=== PATIENT | male | born 1955 | race Caucasian/White ===

== ENCOUNTER 2020-05-18 21:07 | Inpatient (IN) | payer OTHER ==
[~2020-05-18] VITALS: Ht 152.4 cm; Wt 84.8 kg
[2020-05-18] MEDS ORDERED: CEFTRIAXONE 1GM BAG (ER ONLY) 50 ML IV ONE ×2 (22:30→23:07)
[2020-05-18 22:53] LABS: BASOPHILS % (AUTO) 0.3 % (0.0-2.0); BILIRUBIN,URINE LARGE (NEGATIVE); COLOR,URINE AMBER (YELLOW); EOSINOPHILS % (AUTO) 1.6 % (0.0-6.0); HEMATOCRIT 30 % (39-51); HEMOGLOBIN 9.5 g/dL (13.5-17.5); LEUKOCYTE ESTERASE ,URINE LARGE (NEGATIVE); LYMPHOCYTES # (AUTO) 0.9 /CMM (0.8-4.8); LYMPHOCYTES % (AUTO) 9.8 % (20.0-44.0); MEAN CORPUSCULAR HGB CONC 31 g/dl (31.0-36.0); MEAN CORPUSCULAR VOLUME 73 fL (80-96); MONOCYTES # (AUTO) 0.6 /CMM (0.1-1.30); MONOCYTES % (AUTO) 6.9 % (2.0-12.0); NEUTROPHILS # (AUTO) 7.6 /CMM (1.8-8.9); NEUTROPHILS % (AUTO) 81.4 % (43.0-81.0); NITRITE, URINE POSITIVE (NEGATIVE); PLATELET COUNT (AUTO) 537 /CMM (150-450); PROTEIN,URINE >=300 mg/dl (NEGATIVE); RED BLOOD CELL COUNT(AUTO) 4.15 MIL/uL (4.5-6.0); UGLUCOSE NEGATIVE (NEGATIVE); WHITE BLOOD COUNT (AUTO) 9.4 K/uL (4.3-11.0)
[2020-05-18] MEDS ORDERED: VANCOMYCIN 1 GM in IV D5W 250 ML IV ONE (23:00)
[2020-05-18] MEDS ORDERED: VANCOMYCIN 1 GM VIAL ONE (23:07)
[2020-05-18 23:30] LABS: RBC,URINE TOO NUMEROUS TO COUN /HPF (0-2); WBC,URINE 21-50 /HPF (0-3)
[2020-05-18 23:31] LABS: BACTERIA,URINE Many /HPF (None Seen); SQUAMOUS EPITHELIAL CELL,UR Few /HPF (None Seen); YEAST,URINE Many /HPF (None Seen)
[2020-05-18 23:58] LABS: B-TYPE NATRIURETIC PEPTIDE 878 PG/ML (0-125)
[2020-05-19] VITALS (17 sets, daily range): BP systolic 73–138; BP diastolic 37–115
[2020-05-19 00:21] LABS: BILIRUBIN,DIRECT 0.1 mg/dL (0.0-0.2); BILIRUBIN,TOTAL 0.2 mg/dL (0.2-1.0); CALCIUM, SERUM 8.7 mg/dL (8.5-10.1); CREATININE 0.5 mg/dL (0.6-1.3); POTASSIUM 3.2 mmol/L (3.5-5.1)
[2020-05-19 00:22] LABS: ALBUMIN 1.7 g/dL (3.4-5.0); TOTAL PROTEIN, SERUM 6.3 g/dL (6.4-8.2)
[2020-05-19] MEDS ORDERED: diphenhydrAMINE HCL 50 MG/ML VIAL ONE (01:05)
[2020-05-19] MEDS ORDERED: diphenhydrAMINE HCL 50 MG/ML VIAL IV ONE (02:00)
[2020-05-19 02:44] LABS: LYMPHOCYTES % (MANUAL) 9 % (16-48); MONOCYTES % (MANUAL) 6 % (0-11.0); NEUTROPHILS % (MANUAL) 85 (42-76)
[2020-05-19] MEDS ORDERED: IV NS 0.9% 1,000 ML BAG IV ONE (03:00)
[2020-05-19] MEDS ORDERED: MORPHINE SULFATE INJ 2 MG/ML DISP.SYRIN IV PRN (05:30)
[2020-05-19] MEDS ORDERED: ZOLPIDEM TARTRATE 5 MG TABLET PO PRN (05:30)
[2020-05-19] MEDS ORDERED: Z GUARD REMEDY 2 OZ OINT TP PRN (05:30)
[2020-05-19] MEDS ORDERED: ONDANSETRON HCL/PF 4 MG/2 ML VIAL IVP PRN (05:30)
[2020-05-19] MEDS ORDERED: ACETAMINOPHEN 325 MG TABLET PO PRN (05:30)
[2020-05-19 07:01] LABS: BASOPHILS # (AUTO) 0.1 /CMM (0.0-0.2); BASOPHILS % (AUTO) 0.7 % (0.0-2.0); EOSINOPHILS % (AUTO) 0.6 % (0.0-6.0); HEMATOCRIT 33 % (39-51); LYMPHOCYTES # (AUTO) 1.1 /CMM (0.8-4.8); MEAN CORPUSCULAR HGB CONC 30 g/dl (31.0-36.0); MEAN CORPUSCULAR VOLUME 74 fL (80-96); MONOCYTES # (AUTO) 1.2 /CMM (0.1-1.30); MONOCYTES % (AUTO) 8.8 % (2.0-12.0); NEUTROPHILS # (AUTO) 11.1 /CMM (1.8-8.9); NEUTROPHILS % (AUTO) 81.9 % (43.0-81.0); PLATELET COUNT (AUTO) 613 /CMM (150-450); RED BLOOD CELL COUNT(AUTO) 4.47 MIL/uL (4.5-6.0); WHITE BLOOD COUNT (AUTO) 13.5 K/uL (4.3-11.0)
[2020-05-19 07:19] LABS: ALBUMIN 1.7 g/dL (3.4-5.0); BILIRUBIN,TOTAL 0.3 mg/dL (0.2-1.0); CALCIUM, SERUM 8.4 mg/dL (8.5-10.1); CREATININE 0.5 mg/dL (0.6-1.3); MAGNESIUM 1.8 mg/dL (1.8-2.4); POTASSIUM 4.3 mmol/L (3.5-5.1); TOTAL PROTEIN, SERUM 6.2 g/dL (6.4-8.2)
[2020-05-19 08:10] LABS: THYROID STIMULATING HORMONE 2.435 uIU/mL (0.358-3.74)
[2020-05-19] MEDS ORDERED: APIX5TAB PO (08:37)
[2020-05-19] MEDS ORDERED: LEVO25TA9 PO (08:37)
[2020-05-19] MEDS ORDERED: FLEC100T2 PO (08:37)
[2020-05-19] MEDS ORDERED: OMEP40CA13 PO (08:37)
[2020-05-19] MEDS ORDERED: METO50TA16 PO (08:37)
[2020-05-19 10:25] LABS: BAND % (MANUAL) 1 % (0.0-5.0); LYMPHOCYTES % (MANUAL) 3 % (16-48); MONOCYTES % (MANUAL) 6 % (0-11.0); NEUTROPHILS % (MANUAL) 90 (42-76)
[2020-05-19] MEDS: PANTOPRAZOLE 40 MG TABLET.DR PO SCH (11:44)
[2020-05-19] MEDS: DOCUSATE SODIUM 100 MG CAPSULE PO SCH ×2 (11:44→17:28)
[2020-05-19] MEDS: FLUCONAZOLE IN NS,PREMIX 100 MG in PREMIX 1 EA IV SCH (11:46)
[2020-05-19] MEDS: FLECAINIDE ACETATE (100 MG) 100 MG TABLET PO SCH (17:28)
[2020-05-19] MEDS: METOPROLOL TARTRATE 50 MG TABLET PO SCH (17:28)
[2020-05-19] MEDS: APIXABAN 5 MG TABLET PO SCH (17:44)
[2020-05-19] MEDS: IV NS 0.9% 1,000 ML IV PRN (20:00)
[2020-05-19] MEDS: CEFTRIAXONE 1 G in IV D5W 50 ML IV SCH (22:26)
[2020-05-20] VITALS: BP 149/78
[2020-05-20 04:00] VITALS: BP 139/96
[2020-05-20 06:58] LABS: BASOPHILS % (AUTO) 0.5 % (0.0-2.0); EOSINOPHILS % (AUTO) 3.7 % (0.0-6.0); HEMATOCRIT 23 % (39-51); HEMOGLOBIN 7.4 g/dL (13.5-17.5); LYMPHOCYTES % (AUTO) 21.6 % (20.0-44.0); MEAN CORPUSCULAR HGB CONC 32 g/dl (31.0-36.0); MEAN CORPUSCULAR VOLUME 71 fL (80-96); MONOCYTES # (AUTO) 0.4 /CMM (0.1-1.30); MONOCYTES % (AUTO) 8.1 % (2.0-12.0); NEUTROPHILS # (AUTO) 3.1 /CMM (1.8-8.9); NEUTROPHILS % (AUTO) 66.1 % (43.0-81.0); PLATELET COUNT (AUTO) 480 /CMM (150-450); RED BLOOD CELL COUNT(AUTO) 3.29 MIL/uL (4.5-6.0); WHITE BLOOD COUNT (AUTO) 4.6 K/uL (4.3-11.0)
[2020-05-20 07:10] LABS: CALCIUM, SERUM 7.7 mg/dL (8.5-10.1); CREATININE 0.4 mg/dL (0.6-1.3); MAGNESIUM 1.5 mg/dL (1.8-2.4)
[2020-05-20 08:00] VITALS: BP 126/84
[2020-05-20] MEDS: PANTOPRAZOLE 40 MG TABLET.DR PO SCH (08:05)
[2020-05-20 08:24] LABS: POTASSIUM 2.7 mmol/L (3.5-5.1)
[2020-05-20] MEDS: Magnesium 1GM/D5W 100ML PREMIX 100 ML IV SCH ×2 (09:18→10:32)
[2020-05-20] MEDS: POTASSIUM CHLORIDE 20 MEQ POWDER PACKET NG SCH ×5 (09:18→13:33)
[2020-05-20] MEDS: FLECAINIDE ACETATE (100 MG) 100 MG TABLET PO SCH ×2 (09:19→18:44)
[2020-05-20] MEDS: DOCUSATE SODIUM 100 MG CAPSULE PO SCH ×2 (09:19→17:00)
[2020-05-20] MEDS: METOPROLOL TARTRATE 50 MG TABLET PO SCH ×2 (09:19→18:42)
[2020-05-20] MEDS: ASCORBIC ACID 500 MG TABLET PO SCH (09:20)
[2020-05-20] MEDS: FERROUS SULFATE (325 MG) 325 MG/TAB TABLET PO SCH (09:20)
[2020-05-20] MEDS: LEVOTHYROXINE SODIUM 25 MCG TABLET PO SCH (09:20)
[2020-05-20] MEDS: FLUCONAZOLE IN NS,PREMIX 100 MG in PREMIX 1 EA IV SCH (09:21)
[2020-05-20] MEDS: APIXABAN 5 MG TABLET PO SCH ×2 (09:23→17:00)
[2020-05-20] MEDS: DAKINS QUARTER STRENGTH (0.125%) 480 ML BOTTLE TOP SCH (11:37)
[2020-05-20 12:00] VITALS: BP 130/75
[2020-05-20] MEDS ORDERED: Magnesium 1GM/D5W 100ML PREMIX 100 ML IV SCH (12:30)
[2020-05-20] MEDS ORDERED: SILVER NITRATE APPLICATOR 1 EA BOX TP ONE (13:30)
[2020-05-20] MEDS: SOD FERRIC GLUC 125 MG in IV NS 0.9% 100 ML IV SCH (15:58)
[2020-05-20 16:00] VITALS: BP 107/55
[2020-05-20] MEDS: DAKINS FULL STRENGTH (0.5%) 480 ML BOTTLE TOP SCH (17:16)
[2020-05-20] MEDS: PROSOURCE / PROSTAT (PYXIS) 30 ML UDC PO SCH (18:43)
[2020-05-20 20:00] VITALS: BP 120/79
[2020-05-20] MEDS: CEFTRIAXONE 1 G in IV D5W 50 ML IV SCH (22:42)
[2020-05-21] VITALS: BP 127/100
[2020-05-21] MEDS: IV NS 0.9% 1,000 ML IV PRN (01:30)
[2020-05-21 04:00] VITALS: BP 101/63
[2020-05-21 08:00] VITALS: BP 159/81
[2020-05-21] MEDS: METOPROLOL TARTRATE 50 MG TABLET PO SCH ×2 (08:15→18:58)
[2020-05-21] MEDS: ASCORBIC ACID 500 MG TABLET PO SCH (08:15)
[2020-05-21] MEDS: DOCUSATE SODIUM 100 MG CAPSULE PO SCH ×2 (08:17→18:58)
[2020-05-21] MEDS: LEVOTHYROXINE SODIUM 25 MCG TABLET PO SCH (08:17)
[2020-05-21] MEDS: APIXABAN 5 MG TABLET PO SCH ×2 (08:17→18:59)
[2020-05-21] MEDS: PANTOPRAZOLE 40 MG TABLET.DR PO SCH (08:18)
[2020-05-21] MEDS: FERROUS SULFATE (325 MG) 325 MG/TAB TABLET PO SCH (08:18)
[2020-05-21] MEDS: FLUCONAZOLE IN NS,PREMIX 100 MG in PREMIX 1 EA IV SCH (08:19)
[2020-05-21] MEDS: FLECAINIDE ACETATE (100 MG) 100 MG TABLET PO SCH ×2 (08:20→18:57)
[2020-05-21] MEDS: PROSOURCE / PROSTAT (PYXIS) 30 ML UDC PO SCH ×3 (08:20→17:00)
[2020-05-21] MEDS ORDERED: Magnesium 1GM/D5W 100ML PREMIX 100 ML IV SCH (10:30)
[2020-05-21] MEDS ORDERED: POTASSIUM CHLORIDE 20 MEQ POWDER PACKET GT SCH (10:30)
[2020-05-21 12:00] VITALS: BP 129/71
[2020-05-21 13:24] LABS: CREATININE 0.4 mg/dL (0.6-1.3); POTASSIUM 3.8 mmol/L (3.5-5.1)
[2020-05-21 13:51] LABS: HEMOGLOBIN 8.6 g/dL (13.5-17.5)
[2020-05-21] MEDS ORDERED: SOD FERRIC GLUC 125 MG in IV NS 0.9% 100 ML IV SCH (14:00)
[2020-05-21 14:04] LABS: BASOPHILS % (AUTO) 0.5 % (0.0-2.0); EOSINOPHILS % (AUTO) 1.5 % (0.0-6.0); HEMATOCRIT 30 % (39-51); LYMPHOCYTES # (AUTO) 0.9 /CMM (0.8-4.8); LYMPHOCYTES % (AUTO) 14.4 % (20.0-44.0); MEAN CORPUSCULAR HGB CONC 29 g/dl (31.0-36.0); MEAN CORPUSCULAR VOLUME 78 fL (80-96); MONOCYTES # (AUTO) 0.5 /CMM (0.1-1.30); MONOCYTES % (AUTO) 7.8 % (2.0-12.0); NEUTROPHILS # (AUTO) 4.8 /CMM (1.8-8.9); NEUTROPHILS % (AUTO) 75.8 % (43.0-81.0); PLATELET COUNT (AUTO) 554 /CMM (150-450); RED BLOOD CELL COUNT(AUTO) 3.83 MIL/uL (4.5-6.0); WHITE BLOOD COUNT (AUTO) 6.3 K/uL (4.3-11.0)
[2020-05-21] MEDS: SOD FERRIC GLUC 125 MG in IV NS 0.9% 100 ML IV SCH (14:32)
[2020-05-21 16:00] VITALS: BP 152/95
[2020-05-21] MEDS: DAKINS FULL STRENGTH (0.5%) 480 ML BOTTLE TOP SCH (16:30)
[2020-05-21] MEDS: DAKINS QUARTER STRENGTH (0.125%) 480 ML BOTTLE TOP SCH (16:30)
[2020-05-21 20:00] VITALS: BP 129/87
[2020-05-21] MEDS: CEFTRIAXONE 1 G in IV D5W 50 ML IV SCH (22:03)
[2020-05-22] VITALS: BP 144/99
[2020-05-22 04:00] VITALS: BP 121/81
[2020-05-22 08:00] VITALS: BP 165/73
[2020-05-22] MEDS: DOCUSATE SODIUM 100 MG CAPSULE PO SCH ×2 (08:12→18:01)
[2020-05-22] MEDS: LEVOTHYROXINE SODIUM 25 MCG TABLET PO SCH (08:12)
[2020-05-22] MEDS: PANTOPRAZOLE 40 MG TABLET.DR PO SCH (08:12)
[2020-05-22] MEDS: ASCORBIC ACID 500 MG TABLET PO SCH (08:12)
[2020-05-22] MEDS: FLECAINIDE ACETATE (100 MG) 100 MG TABLET PO SCH ×2 (08:12→18:01)
[2020-05-22] MEDS: FERROUS SULFATE (325 MG) 325 MG/TAB TABLET PO SCH (08:12)
[2020-05-22] MEDS: METOPROLOL TARTRATE 50 MG TABLET PO SCH ×2 (08:13→18:01)
[2020-05-22] MEDS: PROSOURCE / PROSTAT (PYXIS) 30 ML UDC PO SCH ×4 (08:13→17:00)
[2020-05-22] MEDS: APIXABAN 5 MG TABLET PO SCH ×2 (08:14→18:03)
[2020-05-22] MEDS: DAKINS QUARTER STRENGTH (0.125%) 480 ML BOTTLE TOP SCH (08:15)
[2020-05-22] MEDS: DAKINS FULL STRENGTH (0.5%) 480 ML BOTTLE TOP SCH (09:00)
[2020-05-22] MEDS: SOD FERRIC GLUC 125 MG in IV NS 0.9% 100 ML IV SCH (14:13)
[2020-05-22 16:00] VITALS: BP 151/71
[2020-05-22 20:00] VITALS: BP 121/77
[2020-05-22] MEDS: CEFTRIAXONE 1 G in IV D5W 50 ML IV SCH (23:03)
[2020-05-23] VITALS: BP 132/80
[2020-05-23 04:00] VITALS: BP 132/80
[2020-05-23 08:00] VITALS: BP 132/83
[2020-05-23] MEDS: APIXABAN 5 MG TABLET PO SCH ×2 (09:00→17:33)
[2020-05-23] MEDS: FLECAINIDE ACETATE (100 MG) 100 MG TABLET PO SCH ×2 (09:08→09:23)
[2020-05-23] MEDS: FERROUS SULFATE (325 MG) 325 MG/TAB TABLET PO SCH ×2 (09:08→09:23)
[2020-05-23] MEDS: ASCORBIC ACID 500 MG TABLET PO SCH ×2 (09:08→09:22)
[2020-05-23] MEDS: LEVOTHYROXINE SODIUM 25 MCG TABLET PO SCH ×2 (09:08→09:22)
[2020-05-23] MEDS: DOCUSATE SODIUM 100 MG CAPSULE PO SCH ×2 (09:08→09:23)
[2020-05-23] MEDS: PANTOPRAZOLE 40 MG TABLET.DR PO SCH ×2 (09:08→09:23)
[2020-05-23] MEDS: PROSOURCE / PROSTAT (PYXIS) 30 ML UDC PO SCH ×3 (09:09→17:11)
[2020-05-23] MEDS: METOPROLOL TARTRATE 50 MG TABLET PO SCH ×2 (09:09→09:23)
[2020-05-23] MEDS: DAKINS FULL STRENGTH (0.5%) 480 ML BOTTLE TOP SCH (09:10)
[2020-05-23] MEDS: DAKINS QUARTER STRENGTH (0.125%) 480 ML BOTTLE TOP SCH (09:10)
[2020-05-23 09:36] LABS: CALCIUM, SERUM 8.6 mg/dL (8.5-10.1); CARBON DIOXIDE 19 mmol/L (21-32); CHLORIDE 102 mmol/L (98-107); CREATININE 0.3 mg/dL (0.6-1.3); GLUCOSE 76 mg/dL (74-106); POTASSIUM 3.2 mmol/L (3.5-5.1); SODIUM SERUM 136 mmol/L (136-145); UREA NITROGEN, BLOOD 8 mg/dL (7-18)
[2020-05-23 10:27] LABS: PROSTATE SPECIFIC ANTIGEN SCR 0.59 ng/mL (0.00-4.00)
[2020-05-23] MEDS: POTASSIUM CHLORIDE 20 MEQ TAB.PRT.SR PO SCH ×5 (11:41→18:19)
[2020-05-23] MEDS: SOD FERRIC GLUC 125 MG in IV NS 0.9% 100 ML IV SCH ×2 (14:00→20:05)
[2020-05-23 16:00] VITALS: BP 110/94
[2020-05-23 18:24] LABS: BASOPHILS % (AUTO) 0.2 % (0.0-2.0); EOSINOPHILS % (AUTO) 1.3 % (0.0-6.0); HEMATOCRIT 28 % (39-51); HEMOGLOBIN 8.7 g/dL (13.5-17.5); LYMPHOCYTES # (AUTO) 0.8 /CMM (0.8-4.8); LYMPHOCYTES % (AUTO) 10.2 % (20.0-44.0); MEAN CORPUSCULAR HGB CONC 31 g/dl (31.0-36.0); MEAN CORPUSCULAR VOLUME 73 fL (80-96); MONOCYTES # (AUTO) 0.5 /CMM (0.1-1.30); MONOCYTES % (AUTO) 6.4 % (2.0-12.0); NEUTROPHILS # (AUTO) 6.1 /CMM (1.8-8.9); NEUTROPHILS % (AUTO) 81.9 % (43.0-81.0); PLATELET COUNT (AUTO) 394 /CMM (150-450); RED BLOOD CELL COUNT(AUTO) 3.81 MIL/uL (4.5-6.0); WHITE BLOOD COUNT (AUTO) 7.4 K/uL (4.3-11.0)
[2020-05-23 20:00] VITALS: BP 97/43
[2020-05-23 20:00] LABS: BAND % (MANUAL) 2 % (0.0-5.0); LYMPHOCYTES % (MANUAL) 5 % (16-48); MONOCYTES % (MANUAL) 4 % (0-11.0); NEUTROPHILS % (MANUAL) 89 (42-76)
[2020-05-23] MEDS: CEFTRIAXONE 1 G in IV D5W 50 ML IV SCH (22:16)
[2020-05-24 04:00] VITALS: BP 112/82
[2020-05-24 06:23] LABS: CALCIUM, SERUM 7.8 mg/dL (8.5-10.1); CREATININE 0.4 mg/dL (0.6-1.3); MAGNESIUM 1.8 mg/dL (1.8-2.4); POTASSIUM 3.8 mmol/L (3.5-5.1)
[2020-05-24] MEDS: METOPROLOL TARTRATE 50 MG TABLET PO SCH ×2 (08:35→16:43)
[2020-05-24] MEDS: DOCUSATE SODIUM 100 MG CAPSULE PO SCH ×2 (08:38→16:42)
[2020-05-24] MEDS: ASCORBIC ACID 500 MG TABLET PO SCH (08:38)
[2020-05-24] MEDS: PANTOPRAZOLE 40 MG TABLET.DR PO SCH (08:38)
[2020-05-24] MEDS: FERROUS SULFATE (325 MG) 325 MG/TAB TABLET PO SCH (08:38)
[2020-05-24] MEDS: LEVOTHYROXINE SODIUM 25 MCG TABLET PO SCH (08:38)
[2020-05-24] MEDS: FLECAINIDE ACETATE (100 MG) 100 MG TABLET PO SCH ×2 (08:39→16:42)
[2020-05-24] MEDS: DAKINS FULL STRENGTH (0.5%) 480 ML BOTTLE TOP SCH (08:39)
[2020-05-24] MEDS: APIXABAN 5 MG TABLET PO SCH ×2 (08:39→16:44)
[2020-05-24] MEDS: DAKINS QUARTER STRENGTH (0.125%) 480 ML BOTTLE TOP SCH (08:39)
[2020-05-24] MEDS: PROSOURCE / PROSTAT (PYXIS) 30 ML UDC PO SCH ×3 (08:39→16:44)
[2020-05-24] MEDS ORDERED: SILVER NITRATE APPLICATOR 1 EA BOX TP ONE (10:30)
[2020-05-24] MEDS ORDERED: LIDOCAINE 1% INJ 50 ML MDV IJ ONE (10:30)
[2020-05-24] MEDS ORDERED: ZOLP5TAB2 PO (10:51)
[2020-05-24] MEDS ORDERED: FERR325T28 PO (10:51)
[2020-05-24] MEDS ORDERED: ASCO500T21 PO (10:51)
[2020-05-24] MEDS ORDERED: DOCU-270 PO (10:51)
[2020-05-24] MEDS ORDERED: CEFT1VIA15 IV (10:51)
[2020-05-24] MEDS ORDERED: Prosource PO (10:51)
[2020-05-24] MEDS ORDERED: ACET325T53 PO (10:51)
[2020-05-24 12:00] VITALS: BP 144/88
[2020-05-24 20:00] VITALS: BP 116/82
[2020-05-25 04:00] VITALS: BP 121/57
[2020-05-25] MEDS: FERROUS SULFATE (325 MG) 325 MG/TAB TABLET PO SCH (08:35)
[2020-05-25] MEDS: ASCORBIC ACID 500 MG TABLET PO SCH (08:35)
[2020-05-25] MEDS: LEVOTHYROXINE SODIUM 25 MCG TABLET PO SCH (08:35)
[2020-05-25] MEDS: DOCUSATE SODIUM 100 MG CAPSULE PO SCH (08:35)
[2020-05-25] MEDS: APIXABAN 5 MG TABLET PO SCH (08:36)
[2020-05-25] MEDS: FLECAINIDE ACETATE (100 MG) 100 MG TABLET PO SCH (08:37)
[2020-05-25] MEDS: METOPROLOL TARTRATE 50 MG TABLET PO SCH (08:37)
[2020-05-25] MEDS: PROSOURCE / PROSTAT (PYXIS) 30 ML UDC PO SCH ×3 (08:38→17:00)
[2020-05-25] MEDS: DAKINS FULL STRENGTH (0.5%) 480 ML BOTTLE TOP SCH (08:38)
[2020-05-25] MEDS: DAKINS QUARTER STRENGTH (0.125%) 480 ML BOTTLE TOP SCH (08:38)
[2020-05-25 12:00] VITALS: BP 140/89
== END 2020-05-25 18:00 | DRG 981 ==
LOC: ER 21:09 → ICU 05-19 06:38 → TELE-TD 05-19 14:56 → TELE1 05-20 10:01 → MEDSG1 05-22 08:07
PROVIDERS: ADMIT Nurse Practitioner Family; ATTEND Legal Medicine
PROC: 0KBN0ZZ Excision of Right Hip Muscle, Open Approach (ICD-10-PCS; principal; 2020-05-20)
PROC: 05H933Z Insertion of Infusion Device into Right Brachial Vein, Percutaneous Approach (ICD-10-PCS; 2020-05-20)
PROC: 05H933Z Insertion of Infusion Device into Right Brachial Vein, Percutaneous Approach (ICD-10-PCS; 2020-05-23)
DX: T83.512A Infection and inflammatory reaction due to nephrostomy catheter, initial encounter (principal); L89.894 Pressure ulcer of other site, stage 4; A41.9 Sepsis, unspecified organism; L89.154 Pressure ulcer of sacral region, stage 4; L89.214 Pressure ulcer of right hip, stage 4; E43 Unspecified severe protein-calorie malnutrition; I26.99 Other pulmonary embolism without acute cor pulmonale; G82.50 Quadriplegia, unspecified; N12 Tubulo-interstitial nephritis, not specified as acute or chronic; I48.92 Unspecified atrial flutter; B37.49 Other urogenital candidiasis; L97.419 Non-pressure chronic ulcer of right heel and midfoot with unspecified severity; L97.429 Non-pressure chronic ulcer of left heel and midfoot with unspecified severity; I48.20 Chronic atrial fibrillation, unspecified; I31.3 Pericardial effusion (noninflammatory); J98.11 Atelectasis; B37.2 Candidiasis of skin and nail; D50.9 Iron deficiency anemia, unspecified; Z20.822 Contact with and (suspected) exposure to COVID-19; Y84.9 Medical procedure, unspecified as the cause of abnormal reaction of the patient, or of later complication, without mention of misadventure at the time of the procedure; Y92.9 Unspecified place or not applicable; D64.9 Anemia, unspecified; K80.20 Calculus of gallbladder without cholecystitis without obstruction; D36.9 Benign neoplasm, unspecified site; N20.0 Calculus of kidney; N13.9 Obstructive and reflux uropathy, unspecified; N31.9 Neuromuscular dysfunction of bladder, unspecified; K76.0 Fatty (change of) liver, not elsewhere classified; Z79.890 Hormone replacement therapy; Z87.442 Personal history of urinary calculi; Z93.6 Other artificial openings of urinary tract status; I70.0 Atherosclerosis of aorta; I10 Essential (primary) hypertension; N50.89 Other specified disorders of the male genital organs; Z79.01 Long term (current) use of anticoagulants; N21.0 Calculus in bladder; E87.6 Hypokalemia; V89.2XXS Person injured in unspecified motor-vehicle accident, traffic, sequela
CPT/HCPCS: 36415; 71045-TC; 76705-TC; 80048-TC; 80053-TC; 80061-TC; 80076-TC; 81001; 82728-TC; 83540-TC; 83605-TC; 83690-TC; 83735-TC; 83880; 84100-TC; 84153-TC; 84154-TC; 84443-TC; 84484-TC; 85025-TC; 85730-TC; 87040-TC; 87070-TC; 87081-TC; 87086-TC; 87186-TC; 93307-TC; A4216; A4623; A6253; A6403; C9803; G0378; J0696; J1200; J1450; J2270; J2916; J3370; J3475; J3490; J7030; J7050; J7060

== ENCOUNTER 2020-08-31 16:47 | Inpatient (IN) | payer OTHER ==
[~2020-08-31] VITALS: Ht 152.4 cm; Wt 67.6 kg
[~2020-08-31 16:47] MED LIST: APIX5TAB PO; FLEC100T2 PO; LEVO25TA9 PO; METO50TA16 PO; OMEP40CA21 PO
--- NOTE | 2020-08-31 16:55 | NUR ---
BIBRA 89 from home c/o nausea, vomiting and abdominal pain. Patient a/ox4, breathing even and unlabored, no sob noted. Needs attended. Attached to the pediatric oncology nurse. Patient is paraplegic, came in with a pedroza catheter.
[2020-08-31] MEDS ORDERED: FENTANYL PF 100MCG/2ML AMPUL ONE (17:15)
[2020-08-31] MEDS ORDERED: IV NS 0.9% 500 ML BAG IV ONE (17:30)
[2020-08-31] MEDS ORDERED: FENTANYL PF 100MCG/2ML AMPUL IV ONE (17:30)
[2020-08-31] MEDS ORDERED: ONDANSETRON HCL/PF 4 MG/2 ML VIAL ONE (17:38)
[2020-08-31 17:50] LABS: BASOPHILS % (AUTO) 0.3 % (0.0-2.0); EOSINOPHILS % (AUTO) 0.1 % (0.0-6.0); HEMATOCRIT 44 % (39-51); HEMOGLOBIN 14.7 g/dL (13.5-17.5); LYMPHOCYTES # (AUTO) 0.5 K/uL (0.8-4.8); LYMPHOCYTES % (AUTO) 6.1 % (20.0-44.0); MEAN CORPUSCULAR HGB CONC 33 g/dl (31.0-36.0); MEAN CORPUSCULAR VOLUME 83 fL (80-96); MONOCYTES # (AUTO) 0.5 K/uL (0.1-1.30); MONOCYTES % (AUTO) 6.6 % (2.0-12.0); NEUTROPHILS # (AUTO) 6.8 K/uL (1.8-8.9); NEUTROPHILS % (AUTO) 86.9 % (43.0-81.0); PLATELET COUNT (AUTO) 342 K/uL (150-450); RED BLOOD CELL COUNT(AUTO) 5.27 MIL/uL (4.5-6.0); WHITE BLOOD COUNT (AUTO) 7.9 K/uL (4.3-11.0)
[2020-08-31 17:56] LABS: BILIRUBIN,URINE SMALL (NEGATIVE); COLOR,URINE DARK YELLOW (YELLOW); LEUKOCYTE ESTERASE ,URINE Large (NEGATIVE); NITRITE, URINE Positive (NEGATIVE); PROTEIN,URINE 100 mg/dl (NEGATIVE); UGLUCOSE Negative (NEGATIVE)
[2020-08-31] MEDS ORDERED: ONDANSETRON HCL/PF - ER 4 MG/2 ML VIAL IV ONE (18:00)
[2020-08-31 18:10] LABS: ALANINE AMINOTRANSFERASE 12 U/L (12-78); ALKALINE PHOSPHATASE 123 U/L (46-116); ASPARTATE AMINOTRANSFERASE 16 U/L (15-37); BILIRUBIN,DIRECT 0.3 mg/dL (0.0-0.2); BILIRUBIN,TOTAL 0.9 mg/dL (0.2-1.0); CARBON DIOXIDE 30 mmol/L (21-32); CHLORIDE 100 mmol/L (98-107); CREATININE 0.5 mg/dL (0.6-1.3); GLUCOSE 95 mg/dL (74-106); SODIUM SERUM 140 mmol/L (136-145); TOTAL PROTEIN, SERUM 6.2 g/dL (6.4-8.2); UREA NITROGEN, BLOOD 7 mg/dL (7-18)
[2020-08-31 18:13] LABS: POTASSIUM 2.8 mmol/L (3.5-5.1)
[2020-08-31 18:14] LABS: BACTERIA,URINE Many /HPF (None Seen); RBC,URINE TOO NUMEROUS TO COUN /HPF (0-2); SQUAMOUS EPITHELIAL CELL,UR Moderate /HPF (None Seen); WBC,URINE TOO NUMEROUS TO COUN /HPF (0-3)
--- NOTE | 2020-08-31 18:27 | NUR ---
MOM AT BEDSIDE.
[2020-08-31] MEDS ORDERED: IV PREMIX 0.45% NS + KCL 1,000 ML IV ONE (18:30)
[2020-08-31] MEDS ORDERED: POTASSIUM CL. PREMIX PERIPHER. 50 ML IV ONE (18:30)
--- NOTE | 2020-08-31 19:00 | NUR ---
CALLED NURSING SUP FOR TELE BED.
--- NOTE | 2020-08-31 19:03 | NUR ---
PER MOM, SHE DOESN'T HAVE A LIST OF MEDICATIONS, WILL BRING IT TOMORROW.
--- NOTE | 2020-08-31 19:09 | NUR ---
PER MOM, PATIENT'S PMD IS DR. MAHER.
--- NOTE | 2020-08-31 19:16 | NUR ---
[facility] ([facility]) [phone]
[2020-08-31 21:10] VITALS: BP 96/70
[2020-08-31] MEDS ORDERED: PIPERACILLIN /TAZOBACTAM 3.375 G in IV D5W 50 ML IV ONE (21:30)
[2020-08-31] MEDS ORDERED: VANCOMYCIN 1 GM in IV D5W 250 ML IV ONE (21:30)
--- NOTE | 2020-08-31 21:48 | NUR ---
DR MAHER PAGED PER DR BROWN.
[2020-08-31] MEDS ORDERED: BACL20TA PO (21:56)
--- NOTE | 2020-08-31 21:56 | NUR ---
PT DOES NOT RECALL ALL HOME MEDICATIONS. STATED HE CAN RECALL HE TALES BACLOFEN 40MG BID. PT STATED GIRLFRIEND WILL CALL LATER FOR REST OF HOME MEDICATIONS.
[2020-08-31 22:10] VITALS: BP 96/70
--- NOTE | 2020-08-31 22:10 | NUR ---
MS LAYOUT DESIGNER NOTE PT TRANSPORTED VIA GURNEY TO [facility] AT THIS TIME. PT ADMITTED UNDER DR. MAHER TO MED SURG FOR DX OF UTI AND GALLSTONES. A/O X2. PT IS STABLE ON ROOM AIR. NO SOB OR S/S OF RESPIRATORY DISTRESS NOTED. PT DENIES PAIN OR DISCOMFORT AT THIS TIME. WOUND PHOTOS TAKEN OF SACRAL WOUNDS AND WOUND ON RIGHT FOOT. IV ACCESS IN RIGHT HAND #22, INTACT AND PATENT. ORIENTED PT TO STAFF, UNIT, AND ROOM. SAFETY PRECAUTIONS IN PLACE AND MAINTAINED AT ALL TIMES. BED IN LOWEST LOCKED POSITION, HOB ELEVATED, SIDE RAILS UP X2. CALL LIGHT AND TABLE WITHIN REACH. WILL CONTINUE TO MONITOR.
--- NOTE | 2020-08-31 22:10 | NUR ---
MS ARTIFICIAL INSEMINATOR NOTE PT TRANSPORTED VIA GURNEY TO [facility] AT THIS TIME. PT ADMITTED TO MED SURG FOR DX OF UTI AND GALLSTONES. A/O X2. PT IS STABLE ON ROOM AIR. NO SOB OR S/S OF RESPIRATORY DISTRESS NOTED. PT DENIES PAIN OR DISCOMFORT AT THIS TIME. WOUND PHOTOS TAKEN OF SACRAL WOUNDS. IV ACCESS IN RIGHT HAND #22, INTACT AND PATENT. ORIENTED PT TO STAFF, UNIT, AND ROOM. SAFETY PRECAUTIONS IN PLACE AND MAINTAINED AT ALL TIMES. BED IN LOWEST LOCKED POSITION, HOB ELEVATED, SIDE RAILS UP X2. CALL LIGHT AND TABLE WITHIN REACH. WILL CONTINUE TO MONITOR. Addendum: 09/01/20 at 0355 by ELEANOR IRWIN RN MS ARTIFICIAL INSEMINATOR NOTE PT TRANSPORTED VIA GURNEY TO [facility] AT THIS TIME. PT ADMITTED TO MED SURG FOR DX OF UTI AND GALLSTONES. A/O X2. PT IS STABLE ON ROOM AIR. NO SOB OR S/S OF RESPIRATORY DISTRESS NOTED. PT DENIES PAIN OR DISCOMFORT AT THIS TIME. WOUND PHOTOS TAKEN OF SACRAL WOUNDS. IV ACCESS IN RIGHT HAND #22, INTACT AND PATENT. SUPRAPUBIC CATH IN PLACE DRAINING CLOUDY YELLOW URINE. ORIENTED PT TO STAFF, UNIT, AND ROOM. SAFETY PRECAUTIONS IN PLACE AND MAINTAINED AT ALL TIMES. BED IN LOWEST LOCKED POSITION, HOB ELEVATED, SIDE RAILS UP X2. CALL LIGHT AND TABLE WITHIN REACH. WILL CONTINUE TO MONITOR.
--- NOTE | 2020-08-31 22:18 | NUR ---
REPORT GIVEN TO RN, PT TRANSFERED.
[2020-08-31] MEDS ORDERED: MORPHINE SULFATE INJ 4 MG/ML DISP.SYRIN IV PRN (22:30)
[2020-08-31] MEDS ORDERED: MORPHINE SULFATE INJ 2 MG/ML DISP.SYRIN IV PRN (22:30)
[2020-08-31] MEDS ORDERED: ACETAMINOPHEN 325 MG TABLET PO PRN (23:00)
[2020-08-31] MEDS ORDERED: ACETAMINOPHEN 650 MG/SUPP.RECT RC PRN (23:00)
[2020-08-31] MEDS ORDERED: PIPERACILLIN /TAZOBACTAM 3.375 G VIAL IV ONE (23:11)
[2020-08-31] MEDS ORDERED: VANCOMYCIN 1 GM VIAL ONE (23:11)
--- NOTE | 2020-08-31 23:18 | NUR ---
VANCOMYCIN 1G AND ZOSYN 3.3G GIVEN BY 3WEST NURSE.
[2020-08-31] MEDS: IV D5/ 0.9% NACL 1,000 ML IV PRN (23:32)
[2020-09-01] MEDS: ONDANSETRON HCL/PF 4 MG/2 ML VIAL IV PRN ×2 (05:19→15:46)
--- NOTE | 2020-09-01 05:19 | NUR ---
PT C/O NAUSEA. PER PT REQUEST, ADMINISTERED ZOFRAN 4 MG IV Q4H PRN FOR NAUSEA/VOMITING. WILL REASSESS IN 30 MINS.
[2020-09-01] MEDS ORDERED: PIPERACILLIN /TAZOBACTAM 3.375 G VIAL IV ONE (05:55)
[2020-09-01] MEDS ORDERED: PIPERACILLIN /TAZOBACTAM 3.375 G in IV D5W 50 ML IV SCH ×2 (06:00→12:00)
--- NOTE | 2020-09-01 06:35 | NUR ---
MS RN CLOSING NOTE PT IS AWAKE IN BED. A/O X2. PT IS STABLE ON ROOM AIR. NO SOB OR S/S OF RESPIRATORY DISTRESS NOTED. PT DENIES PAIN OR DISCOMFORT AT THIS TIME. IV ACCESS IS INTACT, PATENT, AND FLUSHING WELL. SUPRAPUBIC CATH IN PLACE DRAINING CLOUDY YELLOW URINE. ALL NEEDS HAVE BEEN MET. WOUND CARE ADMINISTERED PER ORDER. PT REPOSITIONED Q2H AND PRN. SAFETY AND ASPIRATION PRECAUTIONS MAINTAINED AT ALL TIMES. BED IN LOWEST LOCKED POSITION, HOB ELEVATED, SIDE RAILS UP X2. CALL LIGHT AND TABLE WITHIN REACH. WILL ENDORSE TO ONCOMING NURSE FOR AVINASH.
[2020-09-01] MEDS: LEVOTHYROXINE SODIUM 25 MCG TABLET PO SCH (07:00)
[2020-09-01 07:01] LABS: BASOPHILS % (AUTO) 0.2 % (0.0-2.0); EOSINOPHILS % (AUTO) 0.2 % (0.0-6.0); HEMATOCRIT 48 % (39-51); HEMOGLOBIN 15.7 g/dL (13.5-17.5); LYMPHOCYTES # (AUTO) 1.1 K/uL (0.8-4.8); LYMPHOCYTES % (AUTO) 17.7 % (20.0-44.0); MEAN CORPUSCULAR HGB CONC 33 g/dl (31.0-36.0); MEAN CORPUSCULAR VOLUME 85 fL (80-96); MONOCYTES # (AUTO) 0.6 K/uL (0.1-1.30); MONOCYTES % (AUTO) 9.8 % (2.0-12.0); NEUTROPHILS # (AUTO) 4.5 K/uL (1.8-8.9); NEUTROPHILS % (AUTO) 72.1 % (43.0-81.0); PLATELET COUNT (AUTO) 327 K/uL (150-450); RED BLOOD CELL COUNT(AUTO) 5.67 MIL/uL (4.5-6.0); WHITE BLOOD COUNT (AUTO) 6.2 K/uL (4.3-11.0)
--- NOTE | 2020-09-01 07:21 | NUR ---
WITHHELD LEVOTHYROXINE PO. PT IS NPO DUE TO HIDA SCAN ON 09/01/20.
[2020-09-01] MEDS ORDERED: PANTOPRAZOLE 40 MG TABLET.DR PO SCH (07:30)
--- NOTE | 2020-09-01 07:35 | NUR ---
RN OPENING NOTE RECEIVED PATIENT IN BED. A/O X3. ON ROOM AIR, NO SOB NOTED. IN NO APPARENT DISTRESS. IV ACCESS ON R HAND #22 G, INTACT AND PATENT. D5NS RUNNING AT 75 ML/HR. CURRENTLY ON NPO FOR NM HEPATOBILIARY SCAN. SUPRAPUBIC CATH IN PLACE. SAFETY MEASURES MAINTAINED. BED IN LOWEST POSITION, BRAKES LOCKED. SIDE RAILS UP X2. CALL LIGHT WITHIN REACH. WILL CONTINUE PLAN OF CARE.
[2020-09-01 07:48] LABS: CALCIUM, SERUM 8.8 mg/dL (8.5-10.1); CREATININE 0.4 mg/dL (0.6-1.3)
--- NOTE | 2020-09-01 08:41 | NUR ---
WOUND CARE CONSULT: PT LYING ON LEFT SIDE AND REFUSED TO TURN FOR FULL SKIN ASSESSMENT. 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 PER ADMISSION PHOTO THERE IS A LARGE STAGE 4 ULCER TO LEFT BUTTOCK, PRESENT ON ADMISSION. SURGICAL CONSULT MADE TO DR JEMIMA REILLY AND DPM CONSULT TO DR CALIXTO. RECOMMENDATIONS MADE FOR SKIN PROTECTION AND WOUND CARE DISCUSSED WITH NURSING STAFF. FIRST STEP LOW AIRLOSS MATTRESS IS ON ORDER. MD IN AGREEMENT WITH PLAN OF CARE.
[2020-09-01] MEDS ORDERED: BACLOFEN (10 MG) 10 MG TABLET PO SCH (09:00)
[2020-09-01] MEDS: APIXABAN 5 MG TABLET PO SCH ×2 (09:00→16:29)
[2020-09-01] MEDS: METOPROLOL TARTRATE 50 MG TABLET PO SCH ×2 (09:00→16:28)
[2020-09-01] MEDS: FLECAINIDE ACETATE (100 MG) 100 MG TABLET PO SCH ×2 (09:00→16:40)
[2020-09-01] MEDS: PANTOPRAZOLE 40 MG VIAL IV SCH (10:09)
[2020-09-01] MEDS: Z GUARD REMEDY 2 OZ OINT TP PRN (10:32)
[2020-09-01] MEDS: Z GUARD REMEDY 2 OZ OINT TP SCH (10:32)
[2020-09-01] MEDS: CLOTRIMAZOLE 1% 15 GM TUBE TP SCH ×2 (10:32→16:40)
[2020-09-01] MEDS: DAKINS QUARTER STRENGTH (0.125%) 480 ML BOTTLE TOP SCH (10:32)
--- NOTE | 2020-09-01 10:50 | NUR ---
RN NOTE PT IS UNABLE TO SIGN. OBTAINED TELEPHONE CONSENT FROM [facility] (MOTHER) [phone]. IMMACULATE,RN SIGNED A WITNESS.
--- NOTE | 2020-09-01 11:35 | NUR ---
RN NOTE PATIENT WAS BROUGHT DOWN FOR NM HEPATOBILIARY SCAN VIA BED
--- NOTE | 2020-09-01 15:25 | NUR ---
RN NOTE PT JUST GOT BACK TO HIS ROOM
[2020-09-01] MEDS: POTASSIUM CL. PREMIX PERIPHER. 50 ML IV SCH ×3 (15:34→20:14)
[2020-09-01] MEDS: PIPERACILLIN /TAZOBACTAM 3.375 G in IV D5W 100 ML IV SCH ×2 (15:35→19:56)
--- NOTE | 2020-09-01 16:00 | NUR ---
RN NOTE Late admin for #6 bags of KCL 10 Meq/50 ml peripher. 50 ml and Zosyn IV d/t pt. just got back from NM HB scan. Pharmacy is aware, spoke to Kieran.
[2020-09-01] MEDS: BACLOFEN (10 MG) 10 MG TABLET PO SCH (16:29)
--- NOTE | 2020-09-01 18:20 | NUR ---
RN CLOSING NOTE PATIENT IS ON A LEFT SIDE LYING POSITION. A/O X3. ON ROOM AIR, NO SOB NOTED. NO S/S OF RESPIRATORY DISTRESS. IV ACCESS ON R HAND #22 G, INTACT AND PATENT. D5NS AT 75 ML/HR WITH Kcl 10 Meq per 50 ml IV CURRENTLY RUNNING. SUPRAPUBIC CATH IN PLACE, DRAINING YELLOW URINE, 100 CC OUTPUT. ALL DUE MEDS GIVEN ORDERED. WOUND TREATMENT ORDERED. ABLE TO MAKE NEEDS KNOWN. SAFETY MEASURES MAINTAINED. BED IN LOWEST POSITION, BRAKES LOCKED. SIDE RAILS UP X2. CALL LIGHT WITHIN REACH. WILL ENDORSE CONTINUITY OF CARE TO ONCOMING SHIFT.
--- NOTE | 2020-09-01 18:26 | NUR ---
RN NOTE CALLED [facility] FOR THE AIR MATTRESS. IF NOT TONIGHT, BED WILL BE DELIVERED TOMORROW MORNING. WILL CONTINUE TO FOLLOW UP.
--- NOTE | 2020-09-01 19:15 | NUR ---
RN OPENING NOTE PATIENT IN BED EYES CLOSED, EASILY AROUSED. PATIENT CURRENTLY LAYING ON HIS LEFT SIDE. PATIENT'S DRESSING ON THE RIGHT SIDE BUTTOCK AND HIP CURRENTLY C/D/I. PATIENT IS ABLE TO MAKE NEEDS KNOWN, ZOSYN INFUSION STILL ONGOING. KAREN ARREAGA ENDORSED 4 BAGS OF POTASSIUM 10 MEQ, WILL BE LATE ADMIN, PHARMACY AWARE. SAFETY MEASURES IN PLACE: BED IN LOCKED AND LOWEST POSITION, CALL LIGHT WITHIN REACH, SIDE RAILS UP, WAITING FOR [facility] TO PROVIDE AIR MATTRESS. WILL MONITOR PATIENT CLOSELY.
--- NOTE | 2020-09-01 19:22 | NUR ---
RN NOTE Endorsed #4 bags of KCL 10 Meq/50 ml peripher. 50 ml to WHITLEY Ibarra.
[2020-09-01 20:00] VITALS: BP 141/86
--- NOTE | 2020-09-01 20:05 | NUR ---
RESTARTED 2ND BAG OF POTASSIUM, IT WAS PAUSED DURING DAY SHIFT PER PATIENT'S REQUEST. Addendum: 09/01/20 at 2007 by JIMENA PAREDES RN WILL ADMINISTER THE OTHER FOUR BAGS.
--- NOTE | 2020-09-01 20:38 | NUR ---
paused potassium infusion, requested by pt. will infuse after zosyn. refuses iv insertion as well.
[2020-09-02] MEDS: ONDANSETRON HCL/PF 4 MG/2 ML VIAL IV PRN ×3 (00:03→14:33)
[2020-09-02] MEDS: POTASSIUM CL. PREMIX PERIPHER. 50 ML IV SCH ×3 (02:24→04:51)
[2020-09-02] MEDS: PIPERACILLIN /TAZOBACTAM 3.375 G in IV D5W 100 ML IV SCH ×3 (04:39→20:07)
[2020-09-02] MEDS: LEVOTHYROXINE SODIUM 25 MCG TABLET PO SCH (06:22)
[2020-09-02 06:27] LABS: BASOPHILS % (AUTO) 0.3 % (0.0-2.0); EOSINOPHILS % (AUTO) 0.5 % (0.0-6.0); HEMATOCRIT 39 % (39-51); HEMOGLOBIN 12.9 g/dL (13.5-17.5); LYMPHOCYTES # (AUTO) 0.9 K/uL (0.8-4.8); LYMPHOCYTES % (AUTO) 17.6 % (20.0-44.0); MEAN CORPUSCULAR HGB CONC 33 g/dl (31.0-36.0); MEAN CORPUSCULAR VOLUME 84 fL (80-96); MONOCYTES # (AUTO) 0.6 K/uL (0.1-1.30); MONOCYTES % (AUTO) 11.5 % (2.0-12.0); NEUTROPHILS # (AUTO) 3.4 K/uL (1.8-8.9); NEUTROPHILS % (AUTO) 70.1 % (43.0-81.0); PLATELET COUNT (AUTO) 313 K/uL (150-450); RED BLOOD CELL COUNT(AUTO) 4.63 MIL/uL (4.5-6.0); WHITE BLOOD COUNT (AUTO) 4.9 K/uL (4.3-11.0)
[2020-09-02 06:44] LABS: CREATININE 0.4 mg/dL (0.6-1.3); MAGNESIUM 1.4 mg/dL (1.8-2.4)
--- NOTE | 2020-09-02 07:35 | NUR ---
RN CLOSING NOTE PATIENT IN BED EYES CLOSED, EASILY AROUSED. PATIENT NOT IN ANY APPARENT DISTRESS, BREATHING EVEN AND UNLABORED. IV ZOSYN STILL ONGOING. WOUND CARE PROVIDED TO HIPS, SACRAL, AND BLE WOUNDS. ZOFRAN GIVEN DURING THE SHIFT FOR NAUSEA. SUPRAPUBIC CATHETER STILL IN PLACE. ALL NEED MET AND ATTENDED, ALL ORDERS CARRIED OUT. ENDORSED TO DAY SHIFT NURSE FOR AVINASH. Addendum: 09/02/20 at 0739 by JIMENA PAREDES RN POTASSIUM IV INFUSED
--- NOTE | 2020-09-02 07:40 | NUR ---
RN NOTES PATIENT IN BED RESTING, EYES CLOSED, BUT ABLE TO BE AWAKENED. BREATHING EVEN AND UNLABORED, TOLERATING ROOM AIR. SEEN ON LEFT LATERAL POSITION IN BED, PATIENT COMFORTABLE AT THIS TIME. IV ZOSYN INFUSING. SUPRAPUBIC CATHETER IN PLACE AND DRAINING YELLOW URINE. SAFETY MEASURES IN PLACE. WILL CONTINUE TO MONITOR.
[2020-09-02 08:00] VITALS: BP 120/80
[2020-09-02] MEDS: APIXABAN 5 MG TABLET PO SCH ×2 (08:38→16:17)
[2020-09-02] MEDS: DAKINS QUARTER STRENGTH (0.125%) 480 ML BOTTLE TOP SCH (08:40)
[2020-09-02] MEDS: Z GUARD REMEDY 2 OZ OINT TP PRN (08:40)
[2020-09-02] MEDS: PANTOPRAZOLE 40 MG VIAL IV SCH (08:41)
[2020-09-02] MEDS: Magnesium 1GM/D5W 100ML PREMIX 100 ML IV SCH ×4 (08:41→12:07)
[2020-09-02] MEDS: POTASSIUM CHLORIDE 20 MEQ TAB.PRT.SR PO SCH ×3 (08:41→10:55)
[2020-09-02] MEDS: METOPROLOL TARTRATE 50 MG TABLET PO SCH ×2 (08:42→16:17)
[2020-09-02] MEDS: BACLOFEN (10 MG) 10 MG TABLET PO SCH ×2 (08:42→16:17)
[2020-09-02] MEDS: Z GUARD REMEDY 2 OZ OINT TP SCH (08:43)
[2020-09-02] MEDS: CLOTRIMAZOLE 1% 15 GM TUBE TP SCH ×2 (08:43→16:18)
[2020-09-02] MEDS: MINERAL OIL/PETROLATUM,WHITE 120 GM JAR TP PRN (08:46)
[2020-09-02] MEDS: KETOCONAZOLE 2% CREAM 15 GM TUBE TP SCH ×2 (08:46→16:18)
[2020-09-02] MEDS: FLECAINIDE ACETATE (100 MG) 100 MG TABLET PO SCH ×2 (08:46→16:17)
--- NOTE | 2020-09-02 09:40 | NUR ---
RN NOTES PATIENT GIVEN ZOFRAN PRN FOR NAUSEA; PER PATIENT, WILL TAKE PO MEDS LATER ONCE NAUSEA SUBSIDES. IV MAG INFUSING WELL.
--- NOTE | 2020-09-02 13:01 | NUR ---
RN NOTES PATIENT WAS SEEN BY DR. MAHER TODAY; MADE AWARE OF PATIENT'S EPISODE OF NAUSEA/VOMITING IN AM AND PROVIDED ZOFRAN W/ NOTED EFFECTIVENESS. CONTINUE TO MONITOR FOR NOW PER DR. MAHER, HIDA SCAN SLIGHTLY ABNORMAL PER MD, STILL PENDING LATERAL TRANSFER FOR FURTHER EVAL. REQUESTED FOR MIDLINE FOR PATIENT AND MD AGREED AT THIS TIME. WILL CONTINUE TO MONITOR.
--- NOTE | 2020-09-02 15:36 | NUR ---
RN NOTES PATIENT SEEN BY QASIM SEGUNDO NP; INFORMED BY MANAGER OPERATIONS THAT PATIENT MAY NEED GALLBLADDER SURGERY. MANAGER OPERATIONS W/ ORDER WELL OF ZOFRAN 4MG IVP X1 DOSE PATIENT COMPLAINT OF NAUSEA/VOMITING.
[2020-09-02 16:00] VITALS: BP 109/45
[2020-09-02] MEDS ORDERED: ONDANSETRON HCL/PF 4 MG/2 ML VIAL IV ONE (16:00)
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
--- NOTE | 2020-09-02 16:58 | NUR ---
RN NOTES PATIENT REFUSED PM MEDS AT THIS TIME BECAUSE OF NAUSEA. ICE CHIPS OFFERED TO PATIENT AND TAKEN.
[2020-09-02] MEDS: ENSURE CLEAR 237 ML LIQUID (MIX BERRY) PO SCH (17:41)
--- NOTE | 2020-09-02 18:00 | NUR ---
RN NOTES OFFERED ENSURE CLEAR LIQUID TO PATIENT; ABLE TO DRINK HALF A CUP. PATIENT STATED THAT IT'S TOO SWEET FOR HIM. ICE CHIPS REQUESTED AND PROVIDED TOLERATED. REPOSITIONED IN BED AND CHANGED LINEN W/ BUILDING OPERATOR ASSISTANCE.
[2020-09-02] MEDS: IV D5/ 0.9% NACL 1,000 ML IV PRN (18:27)
--- NOTE | 2020-09-02 18:47 | NUR ---
RN NOTES PATIENT RESTING IN BED, EYES CLOSED, ABLE TO BE AWAKENED. BREATHING EVEN AND UNLABORED, CONTINUES ON ROOM AIR. EMESIS BAG PROVIDED TO PATIENT; PATIENT IS COMFORTABLE AT LEFT LATERAL POSITION AT THIS TIME W/ HOB AT LOW MEANS'S POSITION. PRN ZOFRAN PROVIDED. MIKAYLA MIDLINE INSERTED TODAY; IVF INFUSING WELL. SAFETY MEASURES MAINTAINED. WILL ENDORSE TO POULTRY OFFAL WORKER RN FOR AVINASH.
--- NOTE | 2020-09-02 19:15 | NUR ---
RN OPENING NOTE PATIENT IN BED EYES CLOSED, EASILY AROUSED. PATIENT CURRENTLY LAYING ON HIS LEFT SIDE. BREATHING EVEN AND UNLABORED. DOES NOT COMPLAIN OF NAUSEA OR PAIN AT THIS TIME. PATIENT'S DRESSING ON THE RIGHT SIDE BUTTOCK AND HIP INTACT. PATIENT IS ABLE TO MAKE NEEDS KNOWN, MIKAYLA MIDLINE 18 G PATENT AND INTACT. IV FLUIDS RUNNING WELL. SAFETY MEASURES IN PLACE: BED IN LOCKED AND LOWEST POSITION, CALL LIGHT WITHIN REACH, SIDE RAILS UP. WILL MONITOR PATIENT CLOSELY.
[2020-09-02 20:00] VITALS: BP 94/54
--- NOTE | 2020-09-02 23:00 | NUR ---
PATIENT REFUSING WOUND CARE AT THIS TIME. WILL TRY AGAIN AT A LATER TIME.
[2020-09-03] MEDS: ONDANSETRON HCL/PF 4 MG/2 ML VIAL IV PRN ×2 (01:11→06:00)
[2020-09-03] MEDS ORDERED: METOCLOPRAMIDE HCL 10 MG/2 ML VIAL IV PRN (02:30)
[2020-09-03] MEDS: PIPERACILLIN /TAZOBACTAM 3.375 G in IV D5W 100 ML IV SCH ×3 (04:28→13:49)
[2020-09-03] MEDS: IV D5/ 0.9% NACL 1,000 ML IV PRN (05:42)
[2020-09-03] MEDS: LEVOTHYROXINE SODIUM 25 MCG TABLET PO SCH (06:07)
--- NOTE | 2020-09-03 06:19 | NUR ---
RN CLOSING NOTE PATIENT IN BED, COMPLAINING OF NAUSEA STILL. ZOFRAN WAS GIVEN TWICE DURING THE SHIFT 0111 AND 0600. PATIENT WAS ALSO GIVEN REGLAN AT 0235 WHEN ZOFRAN WAS NOT EFFECTIVE. PATIENT TOLERATING ROOM AIR, BREATHING EVEN AND UNLABORED. SUPRAPUBIC CATHETER STILL IN PLACE. ALL NEEDS MET AND ATTENDED, ALL ORDERS CARRIED OUT. SAFETY MEASURES IMPLEMENTED. PATIENT STILL REFUSING WOUND CARE AT THIS TIME, ASKED FOR IT TO BE DONE IN THE DAY TIME. WILL ENDORSE TO DAY SHIFT NURSE.
[2020-09-03 06:47] LABS: BASOPHILS % (AUTO) 0.3 % (0.0-2.0); EOSINOPHILS % (AUTO) 0.4 % (0.0-6.0); HEMATOCRIT 44 % (39-51); HEMOGLOBIN 14.2 g/dL (13.5-17.5); LYMPHOCYTES # (AUTO) 1.1 K/uL (0.8-4.8); LYMPHOCYTES % (AUTO) 14.7 % (20.0-44.0); MEAN CORPUSCULAR HGB CONC 33 g/dl (31.0-36.0); MEAN CORPUSCULAR VOLUME 84 fL (80-96); MONOCYTES # (AUTO) 0.7 K/uL (0.1-1.30); MONOCYTES % (AUTO) 9.5 % (2.0-12.0); NEUTROPHILS # (AUTO) 5.5 K/uL (1.8-8.9); NEUTROPHILS % (AUTO) 75.1 % (43.0-81.0); PLATELET COUNT (AUTO) 369 K/uL (150-450); RED BLOOD CELL COUNT(AUTO) 5.18 MIL/uL (4.5-6.0); WHITE BLOOD COUNT (AUTO) 7.4 K/uL (4.3-11.0)
[2020-09-03 07:02] LABS: ALBUMIN 1.8 g/dL (3.4-5.0); BILIRUBIN,TOTAL 0.6 mg/dL (0.2-1.0); CALCIUM, SERUM 8.3 mg/dL (8.5-10.1); CREATININE 0.6 mg/dL (0.6-1.3); MAGNESIUM 1.7 mg/dL (1.8-2.4); POTASSIUM 2.9 mmol/L (3.5-5.1); TOTAL PROTEIN, SERUM 5.8 g/dL (6.4-8.2)
--- NOTE | 2020-09-03 08:15 | NUR ---
MS/RN OPENING NOTE RECEIVED PATIENT IN BED, PATIENT TOLERATING ROOM AIR, BREATHING EVEN AND UNLABORED. SUPRAPUBIC CATHETER IN PLACE. SAFETY MEASURES IMPLEMENTED. BED LOCKED ON LOWEST POSITION, SIDE RAILS UPX3, CALL LIGHT WITHIN REACH. WILL CONTINUE TO MONITOR PATIENT.
[2020-09-03] MEDS: BACLOFEN (10 MG) 10 MG TABLET PO SCH ×2 (08:49→16:58)
[2020-09-03] MEDS: Magnesium 1GM/D5W 100ML PREMIX 100 ML IV SCH ×2 (08:50→10:38)
[2020-09-03] MEDS: APIXABAN 5 MG TABLET PO SCH ×2 (08:50→17:04)
[2020-09-03] MEDS: POTASSIUM CHLORIDE 20 MEQ TAB.PRT.SR PO SCH ×3 (08:50→10:49)
[2020-09-03] MEDS: PANTOPRAZOLE 40 MG TABLET.DR PO SCH (08:54)
[2020-09-03] MEDS: ENSURE CLEAR 237 ML LIQUID (MIX BERRY) PO SCH ×3 (08:55→17:12)
[2020-09-03] MEDS: METOPROLOL TARTRATE 50 MG TABLET PO SCH ×2 (09:00→17:00)
[2020-09-03] MEDS: FLECAINIDE ACETATE (100 MG) 100 MG TABLET PO SCH ×2 (10:26→16:58)
[2020-09-03] MEDS: MINERAL OIL/PETROLATUM,WHITE 120 GM JAR TP PRN (10:35)
[2020-09-03] MEDS: DAKINS QUARTER STRENGTH (0.125%) 480 ML BOTTLE TOP SCH (10:35)
[2020-09-03] MEDS: Z GUARD REMEDY 2 OZ OINT TP SCH (10:36)
[2020-09-03] MEDS: CLOTRIMAZOLE 1% 15 GM TUBE TP SCH ×2 (10:38→17:13)
[2020-09-03] MEDS: KETOCONAZOLE 2% CREAM 15 GM TUBE TP SCH ×2 (10:39→17:13)
[2020-09-03] MEDS: PROCHLORPERAZINE EDISYLATE 10 MG/2 ML VIAL IM PRN (16:57)
--- NOTE | 2020-09-03 17:14 | NUR ---
MS/RN NOTES METOPROLOL PO AM AND PM SCHEDULED MEDS WITHHELD DUE TO PATIENT LOW BP OF 90/50. WILL CONTINUE TO MONITOR.
--- NOTE | 2020-09-03 19:16 | NUR ---
MS/RN CLOSING NOTE PATIENT IN BED, AWAKE, ALERT AND ORIENTED X3. ABLE TO MAKE NEEDS KNOWN. PATIENT TOLERATING ROOM AIR, BREATHING EVEN AND UNLABORED. SUPRAPUBIC CATHETER IN PLACE. ALL NEEDS MET. SAFETY MEASURES IMPLEMENTED. BED LOCKED ON LOWEST POSITION, SIDE RAILS UPX3, CALL LIGHT WITHIN REACH. WILL ENDORSE TO THE NEXT SHIFT FOR CONTINUITY OF CARE.
--- NOTE | 2020-09-03 19:39 | NUR ---
MS RN OPENING NOTE PATIENT A/OX3; ABLE TO MAKE NEEDS KNOWN. TOLERATING ROOM AIR WELL WITH NO SOB. DENIES OF PAIN, DISCOMFORT, N/V/D AT THIS TIME. MIKAYLA #18G INFUSING D5 1/2NS @ 75 ML/HR; PATENT AND INTACT. F/C DRAINING MARK COLORED URINE; PATENT AND INTACT. SAFETY MEASURES IN PLACE: BED IN LOWEST LOCKED POSITION, SIDE RAILS UPX2, CALL LIGHT WITHIN EASY REACH, BED ALARMS ON. PATIENT IN STABLE CONDITION; WILL CONTINUE PLAN OF CARE. Addendum: 09/03/20 at 1945 by RIA CRAIG RN CORRECTION D5 NS @ 75ML/HR
[2020-09-03 20:00] VITALS: BP 122/76
[2020-09-04] MEDS: PIPERACILLIN /TAZOBACTAM 3.375 G in IV D5W 100 ML IV SCH ×3 (03:22→20:13)
[2020-09-04] MEDS: IV D5/ 0.9% NACL 1,000 ML IV PRN ×2 (03:23→18:32)
[2020-09-04] MEDS: ONDANSETRON HCL/PF 4 MG/2 ML VIAL IV PRN (03:37)
--- NOTE | 2020-09-04 03:37 | NUR ---
MS RN NOTE PATIENT NOTED WITH NAUSEA. NO EMESIS NOTED. ADMINISTERED ZOFRAN ORDERED. WILL CONTINUE TO REASSESS FOR N/V IN 30 MINUTES.
[2020-09-04] MEDS: PANTOPRAZOLE 40 MG TABLET.DR PO SCH (06:43)
[2020-09-04] MEDS: LEVOTHYROXINE SODIUM 25 MCG TABLET PO SCH (06:43)
[2020-09-04 07:34] LABS: CALCIUM, SERUM 7.7 mg/dL (8.5-10.1); CREATININE 0.2 mg/dL (0.6-1.3); MAGNESIUM 1.8 mg/dL (1.8-2.4); POTASSIUM 3.3 mmol/L (3.5-5.1)
--- NOTE | 2020-09-04 07:35 | NUR ---
MS/RN OPENING NOTE PATIENT IN BED, AWAKE, ALERT AND ORIENTED X3. ABLE TO MAKE NEEDS KNOWN. PATIENT TOLERATING ROOM AIR, BREATHING EVEN AND UNLABORED. SUPRAPUBIC CATHETER IN PLACE. SAFETY MEASURES IMPLEMENTED. BED LOCKED ON LOWEST POSITION, SIDE RAILS UPX3, CALL LIGHT WITHIN REACH. WILL CONTINUE TO MONITOR PATIENT.
--- NOTE | 2020-09-04 07:38 | NUR ---
MS RN CLOSING NOTE PATIENT A/OX3; ABLE TO MAKE NEEDS KNOWN. TOLERATING ROOM AIR WELL WITH NO SOB. DENIES OF PAIN, DISCOMFORT, AT THIS TIME. MIKAYLA #18G INFUSING D5 NS @ 75 ML/HR; PATENT AND INTACT. SUPRAPUBIC CATH DRAINING MARK COLORED URINE; PATENT AND INTACT. SAFETY MEASURES IN PLACE: BED IN LOWEST LOCKED POSITION, SIDE RAILS UPX2, CALL LIGHT WITHIN EASY REACH, BED ALARMS ON. PATIENT IN STABLE CONDITION; ENDORSED PLAN OF CARE TO ONCOMING MORNING RN.
[2020-09-04 08:00] VITALS: BP 132/75
[2020-09-04] MEDS: DAKINS QUARTER STRENGTH (0.125%) 480 ML BOTTLE TOP SCH ×2 (08:14→18:21)
[2020-09-04] MEDS: KETOCONAZOLE 2% CREAM 15 GM TUBE TP SCH ×2 (08:15→18:21)
[2020-09-04] MEDS: CLOTRIMAZOLE 1% 15 GM TUBE TP SCH ×2 (08:15→18:21)
[2020-09-04] MEDS: Z GUARD REMEDY 2 OZ OINT TP SCH (08:16)
[2020-09-04] MEDS: ENSURE CLEAR 237 ML LIQUID (MIX BERRY) PO SCH ×3 (08:17→18:22)
[2020-09-04] MEDS: PROCHLORPERAZINE EDISYLATE 10 MG/2 ML VIAL IM PRN ×3 (08:31→22:19)
[2020-09-04] MEDS: METOPROLOL TARTRATE 50 MG TABLET PO SCH ×2 (09:00→18:07)
[2020-09-04] MEDS: APIXABAN 5 MG TABLET PO SCH ×2 (09:11→18:08)
[2020-09-04] MEDS: FLECAINIDE ACETATE (100 MG) 100 MG TABLET PO SCH ×2 (09:11→18:19)
[2020-09-04] MEDS: BACLOFEN (10 MG) 10 MG TABLET PO SCH ×2 (09:12→18:07)
--- NOTE | 2020-09-04 09:13 | NUR ---
MS/RN NOTES WITHHELD METOPROLOL 50MG PO DUE TO HR OF 52. WILL CONTINUE TO MONITOR PATIENT.
[2020-09-04] MEDS ORDERED: POTASSIUM CHLORIDE 20 MEQ TAB.PRT.SR PO ONE (09:30)
[2020-09-04 16:00] VITALS: BP 114/78
--- NOTE | 2020-09-04 19:06 | NUR ---
MS RN Opening Notes Patient was seen sleeping in his bed. Patient is alert and oriented x3. Patient's on room air with no respiratory distress noted. Patient has a right upper arm midline #18 gauge, which is intact, patent, and flushing well. Patient's in no acute distress at this time. Safety measures in place: Bed locked, bed alarm on, side rails up x3, and call light within reach of the patient. Will continue to monitor the patient.
[2020-09-04 21:00] VITALS: BP 92/52
[2020-09-05] MEDS: ONDANSETRON HCL/PF 4 MG/2 ML VIAL IV PRN ×3 (01:21→21:55)
[2020-09-05] MEDS: PIPERACILLIN /TAZOBACTAM 3.375 G in IV D5W 100 ML IV SCH ×2 (03:10→12:08)
[2020-09-05] MEDS: PROCHLORPERAZINE EDISYLATE 10 MG/2 ML VIAL IM PRN (04:59)
[2020-09-05] MEDS: LEVOTHYROXINE SODIUM 25 MCG TABLET PO SCH ×2 (06:14→06:23)
--- NOTE | 2020-09-05 06:26 | NUR ---
MS RN Notes Patient refused his scheduled 0700 medication. Risks have been explained to the patient and the patient understood.
--- NOTE | 2020-09-05 06:42 | NUR ---
MS RN Closing Notes Patient was seen sleeping in his bed. Patient is alert and oriented x3. Patient's on room air with no respiratory distress noted. Patient has a right upper arm midline #18 gauge, which is intact, patent, and flushing well. Patient's in no acute distress at this time. Safety measures in place: Bed locked, bed alarm on, side rails up x3, and call light within reach of the patient. Will endorse care to the day shift nurse.
[2020-09-05 07:17] LABS: CALCIUM, SERUM 7.6 mg/dL (8.5-10.1); CREATININE 0.3 mg/dL (0.6-1.3); POTASSIUM 3.3 mmol/L (3.5-5.1)
--- NOTE | 2020-09-05 07:20 | NUR ---
RN NOTES PATIENT RESTING IN BED, EYES CLOSED, ABLE TO BE AWAKENED. BREATHING EVEN AND UNLABORED, TOLERATING ROOM AIR. IVF INFUSING, MIDLINE INTACT AND PATENT. SUPRAPUBIC CATH IN PLACE, DRAINING MARK-COLORED URINE. SAFETY MEASURES IN PLACE. WILL CONTINUE TO MONITOR.
[2020-09-05] MEDS: PANTOPRAZOLE 40 MG TABLET.DR PO SCH (07:30)
[2020-09-05] MEDS: ENSURE CLEAR 237 ML LIQUID (MIX BERRY) PO SCH ×3 (08:00→17:00)
[2020-09-05] MEDS: POTASSIUM CL. PREMIX PERIPHER. 50 ML IV SCH ×2 (08:46→11:17)
[2020-09-05 08:48] VITALS: BP 122/72
[2020-09-05] MEDS: BACLOFEN (10 MG) 10 MG TABLET PO SCH ×2 (09:00→17:00)
[2020-09-05] MEDS: METOPROLOL TARTRATE 50 MG TABLET PO SCH ×2 (09:00→16:47)
[2020-09-05] MEDS: FLECAINIDE ACETATE (100 MG) 100 MG TABLET PO SCH ×2 (09:00→17:00)
[2020-09-05] MEDS: Z GUARD REMEDY 2 OZ OINT TP SCH (09:01)
[2020-09-05] MEDS: KETOCONAZOLE 2% CREAM 15 GM TUBE TP SCH ×2 (09:01→17:02)
[2020-09-05] MEDS: CLOTRIMAZOLE 1% 15 GM TUBE TP SCH ×2 (09:01→17:02)
--- NOTE | 2020-09-05 11:33 | NUR ---
RN NOTES PATIENT SEEN BY DR. REILLY TODAY; PER MD, WILL NOT DO SURGERY UNTIL AFTER 3-4 DAYS PATIENT WAS PREVIOUSLY ON ELIQUIS. OKAY FOR CLEAR LIQUIDS FOR NOW PER MD.
[2020-09-05 16:00] VITALS: BP 92/54
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
--- NOTE | 2020-09-05 17:55 | NUR ---
RN NOTES PATIENT CURRENTLY RESTING, EYES CLOSED, MOM AT BEDSIDE. ATTEMPTED TO CLEAN/REPOSITION PATIENT AND ASKED MOM IF IT'S OKAY BUT PATIENT'S MOM ASKED IF IT CAN BE DONE LATER BECAUSE PATIENT IS SLEEPING AND SEEMS TO BE AT A COMFORTABLE POSITION AND DIDN'T WANT TO BE AWAKEN. HOOP EXPANDER ALSO AT BEDSIDE. WILL TRY AGAIN LATER.
--- NOTE | 2020-09-05 18:43 | NUR ---
RN NOTES PATIENT RESTING IN BED, ASSISTED W/ ADL'S DURING THE DAY TOLERATED. CURRENTLY ON CLEAR LIQUID DIET PER MD ORDER; FOR POSSIBLE SURGERY IN 3-[address] REILLY. CATHETER CARE AND WOUND TX PROVIDED INDICATED. SAFETY MEASURES MAINTAINED. WILL ENDORSE TO RESOURCE PARAPROFESSIONAL RN FOR AVINASH.
--- NOTE | 2020-09-05 19:30 | NUR ---
MS RN OPENING NOTE RECEIVED PT IN BED WITH EYES CLOSED, AROUSABLE TO STIMULATION. PT IS STABLE ON ROOM AIR. NO SOB OR S/S OF RESPIRATORY DISTRESS NOTED. IV ACCESS IN MIKAYLA MIDLINE, INFUSING D5NS @ 75 ML/HR. IV IS INTACT AND PATENT. SUPRAPUBIC CATH IN PLACE, DRAINING MARK-COLORED URINE. SAFETY MEASURES MAINTAINED. BED IN LOWEST LOCKED POSITION, HOB ELEVATED, SIDE RAILS UP X2. CALL LIGHT AND TABLE WITHIN REACH. WILL CONTINUE WITH PLAN OF CARE.
[2020-09-05 20:02] VITALS: BP_SYST 111; BP_SYST 112; BP_DIAS 54; BP_DIAS 64
--- NOTE | 2020-09-05 21:55 | NUR ---
PT C/O NAUSEA. NO EMESIS NOTED. PER PT REQUEST, ADMINISTERED ZOFRAN 4 MG IV Q4H PRN FOR NAUSEA/VOMITING. WILL REASSESS IN 30 MINS.
[2020-09-06] MEDS: ONDANSETRON HCL/PF 4 MG/2 ML VIAL IV PRN (05:26)
--- NOTE | 2020-09-06 05:26 | NUR ---
PT C/O NAUSEA. NO EMESIS NOTED. PER PT REQUEST, ADMINISTERED ZOFRAN 4 MG IV Q4H PRN FOR NAUSEA/VOMITING. WILL REASSESS IN 30 MINS.
--- NOTE | 2020-09-06 06:29 | NUR ---
MS RN CLOSING NOTE PT IS AWAKE IN BED. A/O X3. PT IS STABLE ON ROOM AIR. NO SOB OR S/S OF RESPIRATORY DISTRESS NOTED. PT DENIES PAIN OR DISCOMFORT AT THIS TIME. IV ACCESS IS INTACT, PATENT, AND FLUSHING WELL. SUPRAPUBIC CATH IN PLACE DRAINING MARK-COLORED URINE. ALL NEEDS HAVE BEEN MET. WOUND CARE ADMINISTERED PER ORDER. PT REPOSITIONED Q2H AND PRN. SAFETY AND ASPIRATION PRECAUTIONS MAINTAINED AT ALL TIMES. BED IN LOWEST LOCKED POSITION, HOB ELEVATED, SIDE RAILS UP X2. CALL LIGHT AND TABLE WITHIN REACH. WILL ENDORSE TO ONCOMING NURSE FOR AVINASH.
[2020-09-06 08:09] VITALS: BP 136/74
[2020-09-06] MEDS: PANTOPRAZOLE 40 MG TABLET.DR PO SCH (08:53)
[2020-09-06] MEDS: LEVOTHYROXINE SODIUM 25 MCG TABLET PO SCH (08:54)
[2020-09-06] MEDS: BACLOFEN (10 MG) 10 MG TABLET PO SCH ×2 (08:57→17:58)
[2020-09-06] MEDS: METOPROLOL TARTRATE 50 MG TABLET PO SCH ×2 (08:59→17:00)
[2020-09-06] MEDS: ENSURE CLEAR 237 ML LIQUID (MIX BERRY) PO SCH ×3 (10:15→17:56)
[2020-09-06] MEDS: FLECAINIDE ACETATE (100 MG) 100 MG TABLET PO SCH ×3 (10:16→17:58)
[2020-09-06] MEDS: Z GUARD REMEDY 2 OZ OINT TP SCH (10:17)
[2020-09-06] MEDS: KETOCONAZOLE 2% CREAM 15 GM TUBE TP SCH ×2 (10:18→17:57)
[2020-09-06] MEDS: CLOTRIMAZOLE 1% 15 GM TUBE TP SCH ×2 (10:18→17:56)
[2020-09-06] MEDS: DAKINS QUARTER STRENGTH (0.125%) 480 ML BOTTLE TOP SCH (10:19)
[2020-09-06 15:05] LABS: BASOPHILS % (AUTO) 0.4 % (0.0-2.0); EOSINOPHILS % (AUTO) 0.7 % (0.0-6.0); HEMATOCRIT 35 % (39-51); HEMOGLOBIN 11.6 g/dL (13.5-17.5); LYMPHOCYTES # (AUTO) 0.9 K/uL (0.8-4.8); LYMPHOCYTES % (AUTO) 23.9 % (20.0-44.0); MEAN CORPUSCULAR HGB CONC 34 g/dl (31.0-36.0); MEAN CORPUSCULAR VOLUME 84 fL (80-96); MONOCYTES # (AUTO) 0.4 K/uL (0.1-1.30); MONOCYTES % (AUTO) 10.2 % (2.0-12.0); NEUTROPHILS # (AUTO) 2.4 K/uL (1.8-8.9); NEUTROPHILS % (AUTO) 64.8 % (43.0-81.0); PLATELET COUNT (AUTO) 258 K/uL (150-450); WHITE BLOOD COUNT (AUTO) 3.7 K/uL (4.3-11.0)
[2020-09-06 15:11] LABS: CALCIUM, SERUM 7.6 mg/dL (8.5-10.1); CREATININE 0.5 mg/dL (0.6-1.3); MAGNESIUM 1.5 mg/dL (1.8-2.4); POTASSIUM 3.1 mmol/L (3.5-5.1)
[2020-09-06 16:09] VITALS: BP 89/64
[2020-09-06] MEDS: PROCHLORPERAZINE EDISYLATE 10 MG/2 ML VIAL IM PRN (17:58)
--- NOTE | 2020-09-06 18:07 | NUR ---
Medication Fleainide 100 mg not given. Pt refused. HR 53
--- NOTE | 2020-09-06 19:00 | NUR ---
Closing Note: Pt A&ox3, v/s stable, no c/o of pain. Call light within reach, bed locked in low position, floor free of clutter. Offered to make pt more comfortable. All needs met at this time.
--- NOTE | 2020-09-06 19:35 | NUR ---
ACCOUNTING SUPERVISOR OPENING PATIENT IN BED WITH EYES CLOSED, EASY TO AROUSE. MOTHER IN BED SIDE WITH PATIENT. NO S/S OF APPARENT DISTRESS. NO C/O PAIN AT THE MOMENT. QUADRIPLEGIC. NO IV FLUID RUNNING AT THIS TIME. SAFETY IN PLACE: BED IN LOWEST, LOCKED POSITION. CALL LIGHT WITHIN REACH. WILL CONTINUE TO MONITOR.
[2020-09-06 20:00] VITALS: BP 111/71
--- NOTE | 2020-09-06 20:00 | NUR ---
MS RN NOTES PATIENT'S MOM ASKED IF PATIENT WILL HAVE SURGERY TOMORROW. SINCE IT WAS ENDORSED TO ME THAT THE PATIENT WILL HAVE SURGERY 3-4 DAYS, AND IT WAS VAGUE, PATIENT'S MOM SAID SHE NEEDS TO KNOW EXACTLY WHEN - I ASKED TOSIN CRUZ, IF PATIENT IS HAVING SURGERY TOMORROW 09/07- PER ANTHONY, EITHER TOMORROW OR THE DAY AFTER TOMORROW. TOLD THE PATIENT'S MOTHER AND MOM SEEMS UPSET -- PER PATIENT'S MOM (ELSIE), TOLD THEM THAT THE SURGERY WILL BE TOMORROW, BUT THE HOSPITAL SAID ON SATURDAY SO SHE'S VERY CONFUSED TO WHEN THE SURGERY WILL BE SINCE IT'S SUPPOSEDLY SCHEDULED ON TUESDAY 09/05.
[2020-09-06 20:10] VITALS: BP 111/71
--- NOTE | 2020-09-07 03:56 | NUR ---
MS RN NOTES -SYSTEM JUST GOT BACK UP- PATIENT BEEN REFUSING Q2HRS OF REPOSITIONING. PATIENT GETS MAD WHEN I SUGGEST/PERSUADE HIM TO REPOSITION. PER PATIENT HE HAS SORES ALL OVER HIS BODY AND HE DOES NOT WANT TO BE LAYING DOWN ON THOSE SORES. I TOLD PATIENT THAT I AM CONCERNED THAT HE MIGHT GET MORE SORES FROM BEING IN ONE POSITION AND NOT REPOSITIONING HIM IS BAD AND COULD LEAD TO MORE PRESSURE ULCERS. PATIENT ACKNOWLEDGED THIS AND PER PATIENT "NO IT'S NOT, I KNOW MY BODY AND THIS IS THE ONLY POSITION I'M COMFORTABLE BEING." PATIENT AGREED FOR DRESSING CHANGE.
--- NOTE | 2020-09-07 04:25 | NUR ---
MS RN NOTES CHECKED THE LIST OF SCHEDULED SURGERY FOR TODAY AND PATIENT IS NOT SCHEDULED FOR SURGERY TODAY. WILL LET ELSIE KNOW.
--- NOTE | 2020-09-07 05:13 | NUR ---
MS RN NOTES WOUND TREATMENT DONE, DRESSING CHANGED. GOWN CHANGED. PATIENT STILL DOES NOT WANT TO BE REPOSITIONED. MADE CHARGE NURSE KNOWN.
--- NOTE | 2020-09-07 06:41 | NUR ---
MS RN NOTES PATIENT IN BED WITH EYES CLOSED, EASY TO AROUSE. A/OX3. PATIENT QUADRIPLEGIC WITH LEFT ARM BEING FLACCID. NO S/S OF APPARENT DISTRESS. NO C/O PAIN AT THIS TIME. NO IV FLUIDS RUNNING PATIENT HAVING SWOLLEN EXTREMITIES. MIDLINE IN PLACE. SUPRAPUBIC CATH DRAINING DARK YELLOW URINE WITH SEDIMENTS URINE OUTPUT OF 600. WOUND TREATMENT DONE. SAFETY KEPT IN PLACE THE WHOLE SHIFT. ALL NEEDS ATTENDED --ADAMANTLY REFUSING POSITION CHANGE. NO SIGNIFICANT CHANGE SINCE LAST SHIFT. CONSENT AND CHECKLIST FOR LAP-CHOLY SURGERY IN CHART. WILL ENDORSE CARE TO MORNING SHIFT RN.
--- NOTE | 2020-09-07 07:25 | NUR ---
MS RN NOTES CALLED ELSIE (MOM OF PATIENT) AND MADE KNOWN OF PATIENT NO SCHEDULE FOR SURGERY TODAY. MOM ACKNOWLEDGE AND SAID THANK YOU.
--- NOTE | 2020-09-07 07:30 | NUR ---
RN MS NOTES PT IN BED, ASLEEP, EASY TO AROUSE, ALERT AND ORIENTED, DENIES PAIN OR ANY DISCOMFORT, RESPIRATIONS NORMAL, CALL LIGHT WITHIN EASY REACH, KEPT WARM AND COMFORTABLE IN BED, ASSISTED WITH MEALS.
[2020-09-07 08:00] VITALS: BP 96/64
[2020-09-07] MEDS: METOPROLOL TARTRATE 50 MG TABLET PO SCH ×2 (09:00→16:56)
[2020-09-07] MEDS: DAKINS QUARTER STRENGTH (0.125%) 480 ML BOTTLE TOP SCH (09:21)
[2020-09-07] MEDS: CLOTRIMAZOLE 1% 15 GM TUBE TP SCH ×2 (09:21→16:55)
[2020-09-07] MEDS: Z GUARD REMEDY 2 OZ OINT TP SCH (09:21)
[2020-09-07] MEDS: ENSURE CLEAR 237 ML LIQUID (MIX BERRY) PO SCH ×3 (09:25→16:53)
[2020-09-07] MEDS: PANTOPRAZOLE 40 MG TABLET.DR PO SCH (11:52)
[2020-09-07] MEDS: FLECAINIDE ACETATE (100 MG) 100 MG TABLET PO SCH ×2 (11:53→16:55)
[2020-09-07] MEDS: LEVOTHYROXINE SODIUM 25 MCG TABLET PO SCH (11:53)
[2020-09-07] MEDS: BACLOFEN (10 MG) 10 MG TABLET PO SCH ×2 (11:53→16:53)
[2020-09-07] MEDS: KETOCONAZOLE 2% CREAM 15 GM TUBE TP SCH ×2 (12:05→16:56)
[2020-09-07] MEDS: PROCHLORPERAZINE EDISYLATE 10 MG/2 ML VIAL IM PRN (12:32)
[2020-09-07] MEDS: POTASSIUM CL. PREMIX PERIPHER. 50 ML IV SCH ×2 (13:45→14:00)
[2020-09-07] MEDS ORDERED: POTASSIUM CHLORIDE 20 MEQ TAB.PRT.SR PO ONE (15:30)
[2020-09-07 16:00] VITALS: BP 128/78
--- NOTE | 2020-09-07 16:00 | NUR ---
RN MS NOTES PT UNABLE TO TOLERATE POTASSIUM IV, DR. MAHER INFORMED, RECEIVED ORDER TO CHANGE TO PO, NOTED AND CARRIED OUT.
--- NOTE | 2020-09-07 18:07 | NUR ---
RN MS NOTES PT IN BED, RESTING, NO COMPLAINT AT THIS TIME, ON ROOM AIR, PT SEEN BY DR. MAHER, PLAN OF CARE DISCUSSED WITH PT, PT ALSO SEEN BY QASIM JOHNSON, PLAN FOR LAP CHOLY TOMORROW, PT INFORMED, CONSENTS SIGNED, WOUND TREATMENT AND DRESSING CHANGE DONE, PM CARE PROVIDED, SUPRAPUBIC CATH IN PLACE, DRAINING WELL, PT PREFERS TO BE ON HER LEFT SIDE, PT ALSO REFUSED HEEL PROTECTORS, ASSISTED WITH DINNER, ALL NEEDS ATTENDED.
--- NOTE | 2020-09-07 19:50 | NUR ---
MS RN OPENING PATIENT IN BED A/Ox4. MOTHER IN BED SIDE WITH PATIENT. NO S/S OF APPARENT DISTRESS. NO C/O PAIN AT THE MOMENT. QUADRIPLEGIC. NO IV FLUID RUNNING AT THIS TIME. SAFETY IN PLACE: BED IN LOWEST, LOCKED POSITION. CALL LIGHT WITHIN REACH. NPO SIGNAGE UP. WILL CONTINUE TO MONITOR.
[2020-09-07 20:00] VITALS: BP 90/53
[2020-09-08] VITALS (7 sets, daily range): BP systolic 96–151; BP diastolic 58–96
[2020-09-08 06:23] LABS: BASOPHILS % (AUTO) 0.3 % (0.0-2.0); EOSINOPHILS % (AUTO) 0.9 % (0.0-6.0); HEMATOCRIT 36 % (39-51); HEMOGLOBIN 12.1 g/dL (13.5-17.5); LYMPHOCYTES # (AUTO) 1.2 K/uL (0.8-4.8); MEAN CORPUSCULAR HGB CONC 34 g/dl (31.0-36.0); MEAN CORPUSCULAR VOLUME 84 fL (80-96); MONOCYTES # (AUTO) 0.4 K/uL (0.1-1.30); MONOCYTES % (AUTO) 10.3 % (2.0-12.0); NEUTROPHILS # (AUTO) 2.1 K/uL (1.8-8.9); NEUTROPHILS % (AUTO) 56.5 % (43.0-81.0); PLATELET COUNT (AUTO) 252 K/uL (150-450); RED BLOOD CELL COUNT(AUTO) 4.31 MIL/uL (4.5-6.0); WHITE BLOOD COUNT (AUTO) 3.7 K/uL (4.3-11.0)
--- NOTE | 2020-09-08 06:53 | NUR ---
MS RN CLOSING PATIENT IN BED WITH EYES CLOSED, EASY TO AROUSE. OFFLOADING DONE Q 2HRS, BUT PATIENT STILL ADAMANTLY REFUSED BEING SWITCH SIDES FOR POSITION CHANGE. NO S/S OF APPARENT DISTRESS. NO C/O PAIN AT THIS TIME. WOUND TREATMENT HAS BEEN DONE. DRESSING HAS BEEN CHANGED. PATIENT WILL HAVE SURGERY TODAY, MOM AND PATIENT AWARE. CONSENT SIGNED AND CHARTED. CHECKLIST HAS BEEN DONE AND IN THE CHART. NO IV FLUIDS RUNNING AT THIS TIME. SUPRAPUBIC CATH DRAINING MARK YELLOW URINE WITH SEDIMENT. NO SIGNIFICANT CHANGE SINCE LAST SHIFT. WILL ENDORSE TO MORNING SHIFT RN.
[2020-09-08 07:10] LABS: CALCIUM, SERUM 8.1 mg/dL (8.5-10.1); CREATININE 0.4 mg/dL (0.6-1.3); MAGNESIUM 1.4 mg/dL (1.8-2.4)
[2020-09-08] MEDS: ENSURE CLEAR 237 ML LIQUID (MIX BERRY) PO SCH ×2 (08:00→11:03)
--- NOTE | 2020-09-08 08:00 | NUR ---
MS RN OPENING NOTE RECEIVED PATIENT IN BED, AWAKE. A/O X3. QUADRIPLEGIC. STABLE ON ROOM AIR - NO SOB OR DISTRESS/DISCOMFORT NOTED. IV ACCESS IN [place] MIDLINE, INFUSING D5NS @ 75 ML/HR. SUPRAPUBIC CATH IN PLACE - DRAINING YELLOW URINE. PATIENT IS NPO - TO HAVE PROCEDURE TODAY. SAFETY MEASURES MAINTAINED. WILL CONTINUE TO MONITOR.
[2020-09-08] MEDS: FLECAINIDE ACETATE (100 MG) 100 MG TABLET PO SCH ×2 (08:10→17:00)
[2020-09-08] MEDS: BACLOFEN (10 MG) 10 MG TABLET PO SCH ×2 (08:11→17:00)
[2020-09-08] MEDS: PANTOPRAZOLE 40 MG TABLET.DR PO SCH (08:11)
[2020-09-08] MEDS: LEVOTHYROXINE SODIUM 25 MCG TABLET PO SCH (08:11)
[2020-09-08] MEDS: DAKINS QUARTER STRENGTH (0.125%) 480 ML BOTTLE TOP SCH (08:17)
[2020-09-08] MEDS: KETOCONAZOLE 2% CREAM 15 GM TUBE TP SCH ×2 (08:18→17:00)
[2020-09-08] MEDS: Z GUARD REMEDY 2 OZ OINT TP SCH (08:18)
[2020-09-08] MEDS: CLOTRIMAZOLE 1% 15 GM TUBE TP SCH ×2 (08:19→17:00)
[2020-09-08] MEDS: METOPROLOL TARTRATE 50 MG TABLET PO SCH ×2 (08:44→17:00)
[2020-09-08] MEDS: Magnesium 1GM/D5W 100ML PREMIX 100 ML IV SCH ×4 (09:19→11:03)
--- NOTE | 2020-09-08 10:11 | NUR ---
PATIENT REFUSING ALL 4 BAGS OF POTASSIUM. STATES IT SALAZAR WHEN IT RUNS. AWARE. Addendum: 09/08/20 at 1605 by TERESA BROCK RN MAGNESIUM NOT POTASSIUM.
--- NOTE | 2020-09-08 10:22 | NUR ---
PATIENT REFUSES TO BE REPOSITIONED/TURNED. STATES HE IS MOST COMFORTABLE ON HIS LEFT SIDE.
[2020-09-08] MEDS ORDERED: ANESTHESIA TRAY IN PYXIS 1 EA TRAY MC ONE (15:48)
[2020-09-08] MEDS ORDERED: LIDOCAINE 1% INJ 50 ML MDV IJ ONE (15:49)
[2020-09-08] MEDS ORDERED: BUPIVACAINE MPF 0.5% W/EPI INJ 30 ML VIAL ONE (15:49)
[2020-09-08] MEDS ORDERED: ROCURONIUM BROMIDE 50 MG/5 ML ONE ×2 (17:16)
[2020-09-08] MEDS ORDERED: FENTANYL PF 100MCG/2ML AMPUL ONE (17:16)
[2020-09-08] MEDS ORDERED: NITROGLYCERIN 0.4 MG/TAB BOTTLE ONE (17:35)
[2020-09-08] MEDS ORDERED: NITROGLYCERIN IN 5 % DEXTROSE 250 ML IV ONE (18:00)
[2020-09-08] MEDS ORDERED: NITROGLYCERIN IN 5 % DEXTROSE 250 ML IV PRN (18:30)
--- NOTE | 2020-09-08 18:57 | NUR ---
MS RN CLOSING NOT PATIENT CURRENTLY IN OR FOR PROCEDURE - WILL ENDORSE TO ASSESSMENT COORDINATOR NURSE FOR AVINASH.
[2020-09-08] MEDS ORDERED: MORPHINE SULFATE INJ 2 MG/ML DISP.SYRIN IV PRN (19:00)
[2020-09-08] MEDS ORDERED: HYDROCODONE/APAP 5/325MG TABLET PO PRN (19:00)
--- NOTE | 2020-09-08 20:25 | NUR ---
PT RETURNED FORM OR. REPORT RECIEVED FROM OR NURSE RN. STARTED ON POST OP VIAL SIGNS. PT VS WNL. PT IN NO APPARENT DISTRESS. PT IS SLEEPY BUT ALERT AND ORIENTEDX3. PT RETURNS AFTER HAVING LAP BRADEN PERFORMED WITH DR. REILLY. HAS 3 ABD PUNCUTRE WOUNDS COVERED WITH STERISTRIPS WITH NO SIGNIFICANT(MINOR) BLEEDING. DRY AND INTACT.
--- NOTE | 2020-09-08 22:55 | NUR ---
PATIENT DRINKING WATER DENIES NAUSEA AND VOMITING. PT ATE PUDDING. PT ORDERED TO ADVANCE DIET TOLERATED. PT DIET ADVANCED TO SOFT DIET TO START IN THE MORNING WITH BREAKFAST.
[2020-09-09] MEDS: IV D5/ 0.9% NACL 1,000 ML IV PRN (02:35)
[2020-09-09 08:00] VITALS: BP 115/65
[2020-09-09] MEDS: BACLOFEN (10 MG) 10 MG TABLET PO SCH ×2 (08:26→16:14)
[2020-09-09] MEDS: PANTOPRAZOLE 40 MG TABLET.DR PO SCH (08:26)
[2020-09-09] MEDS: FLECAINIDE ACETATE (100 MG) 100 MG TABLET PO SCH ×2 (08:26→16:14)
[2020-09-09 08:27] VITALS: BP 115/65
[2020-09-09] MEDS: METOPROLOL TARTRATE 50 MG TABLET PO SCH ×2 (08:27→16:02)
[2020-09-09] MEDS: LEVOTHYROXINE SODIUM 25 MCG TABLET PO SCH (08:27)
[2020-09-09] MEDS: KETOCONAZOLE 2% CREAM 15 GM TUBE TP SCH ×2 (08:48→16:17)
[2020-09-09] MEDS: Z GUARD REMEDY 2 OZ OINT TP SCH (08:48)
[2020-09-09] MEDS: DAKINS QUARTER STRENGTH (0.125%) 480 ML BOTTLE TOP SCH (08:48)
[2020-09-09] MEDS: CLOTRIMAZOLE 1% 15 GM TUBE TP SCH ×2 (08:55→16:17)
--- NOTE | 2020-09-09 17:55 | NUR ---
MS [facility] EXAMINER NOTE PATIENT DISCHARGED VIA AMBULANCE TRANSPORTATION. PT IS A/O X4, STABLE, MOTHER AT BEDSIDE. NO SOB NOTED, NO DISTRESS/DISCOMFORT NOTED. NO PAIN NOTED. ALL EXITCARE AND EDUCATION EXPLAINED TO BOTH PATIENT AND MOTHER. PATIENT STATES HE HAS HOME HEALTH NURSE FOR HIS WOUND CARE. DISCHARGE PAPERWORK AND PRESCRIPTION GIVEN TO MOTHER. DISCHARGE PHOTOS TAKEN AND IN CHART - PATIENT DID NOT WANT HIS FOOT WOUND TO BE TOUCHED (STATED HE WAS IN PAIN DURING WOUND CARE AND DID NOT WANT TO BE TURNED ANYMORE) - ALL OTHER PHOTOS TAKEN. PATIENT KEPT CLEAN AND DRY. MIDLINE ACCESS REMOVED. WRISTBAND REMOVED. PATIENT ACCOMPANIED TO LOBBY BY EMT'S VIA [employer]. MD AWARE, CHARGE NURSE AWARE.
== END 2020-09-09 17:55 | disposition home health service (06) | DRG 853 ==
LOC: ER 16:51 → TELE 21:45 → MED 22:21
PROVIDERS: ADMIT Legal Medicine; ATTEND Legal Medicine
PROC: 05HD33Z Insertion of Infusion Device into Right Cephalic Vein, Percutaneous Approach (ICD-10-PCS; 2020-09-02)
PROC: 0FT44ZZ Resection of Gallbladder, Percutaneous Endoscopic Approach (ICD-10-PCS; principal; 2020-09-08)
PROC: 0FB04ZX Excision of Liver, Percutaneous Endoscopic Approach, Diagnostic (ICD-10-PCS; 2020-09-08)
PROC: 3E0T3BZ Introduction of Anesthetic Agent into Peripheral Nerves and Plexi, Percutaneous Approach (ICD-10-PCS; 2020-09-08)
PROC: 05H933Z Insertion of Infusion Device into Right Brachial Vein, Percutaneous Approach (ICD-10-PCS; 2020-09-08)
DX: A41.9 Sepsis, unspecified organism (principal); G82.50 Quadriplegia, unspecified; J90 Pleural effusion, not elsewhere classified; N39.0 Urinary tract infection, site not specified; I48.20 Chronic atrial fibrillation, unspecified; M46.28 Osteomyelitis of vertebra, sacral and sacrococcygeal region; G82.20 Paraplegia, unspecified; N20.2 Calculus of kidney with calculus of ureter; K82.8 Other specified diseases of gallbladder; L89.159 Pressure ulcer of sacral region, unspecified stage; L89.229 Pressure ulcer of left hip, unspecified stage; K80.20 Calculus of gallbladder without cholecystitis without obstruction; Z79.01 Long term (current) use of anticoagulants; B35.1 Tinea unguium; L84 Corns and callosities; Z20.822 Contact with and (suspected) exposure to COVID-19; D64.9 Anemia, unspecified; E83.42 Hypomagnesemia; E87.6 Hypokalemia; G89.4 Chronic pain syndrome; I10 Essential (primary) hypertension; I70.8 Atherosclerosis of other arteries; R16.0 Hepatomegaly, not elsewhere classified; Z87.440 Personal history of urinary (tract) infections; Z79.890 Hormone replacement therapy; Z79.899 Other long term (current) drug therapy
CPT/HCPCS: 36410; 36415; 71045-TC; 73620-TC; 78226; 80048-TC; 80053-TC; 80076-TC; 81001; 83605-TC; 83735-TC; 84484-TC; 85025-TC; 85730-TC; 86706; 86803; 87040-TC; 87081-TC; 87086-TC; 87806; 88304-TC; 88307-TC; 88313-TC; A6253; A6403; A9537; C9113; C9803; G0378; J0690; J0780; J1100; J2270; J2405; J2543; J2704; J2765; J3010; J3370; J3475; J3480; J3490; J7040; J7042; J7050; J7060